=== PATIENT | male | born 1945 | race Caucasian/White ===

== ENCOUNTER → 2024-06-30 | Outpatient (CLI) | payer MEDICARE, OTHER, SELFPAY ==
[2024-06-30 08:31] LABS: Basophils # (Auto) 0.1 Thou/mm3 (0.0-0.2); Basophils % (Auto) 1 % (0-2.5); Eosinophils # (Auto) 0.4 Thou/mm3 (0.0-0.5); Eosinophils % (Auto) 6 % (0-10); Hematocrit 44.5 % (41.0-53.0); Hemoglobin 15.6 g/dL (13.5-16.0); Immature Granulocytes % (Auto) 0 % (0-0); Immature Granulocytes Auto 0.02 Thou/mm3 (0.00-0.00); Lymphocytes # (Auto) 1.9 Thou/mm3 (1.0-4.8); Lymphocytes % (Auto) 27 % (10-50); Mean Corpuscular HGB Conc 35.1 g/dl (31.0-37.0); Mean Corpuscular Hemoglobin 29.5 pg (25.0-35.0); Mean Corpuscular Volume 84 fL (80-100); Monocytes # (Auto) 0.6 Thou/mm3 (0.0-0.8); Monocytes % (Auto) 9 % (0-12); Neutrophils % (Auto) 57 % (37-80); Nucleated Red Blood Cell % 0 /100 WBC (0); Platelet Count 319 Thou/mm3 (140-440); RDW Standard Deviation 39.4 fL (35.1-43.9); Red Blood Count 5.28 Miln/mm3 (4.50-5.90)
[2024-06-30 09:00] LABS: Alanine Aminotransferase 22 U/L (10-49); Albumin, Serum 4.4 gm/dL (3.4-4.8); Alkaline Phosphatase 107 U/L (46-116); Anion Gap 9 (7-16); Aspartate Amino Transferase 18 U/L (0-34); BUN/Creatinine Ratio 14 Ratio (12-20); Bilirubin,Direct 0.3 mg/dL (0.0-0.3); Bilirubin,Total 0.8 mg/dL (0.3-1.2); Blood Urea Nitrogen 14 mg/dL (9-23); Calcium 9.6 mg/dL (8.3-10.6); Carbon Dioxide 25.8 mMol/L (20.0-31.0); Cardiac Risk Estimate 3.3 RATIO (4.0-6.7); Chloride 103 mMol/L (98-107); Cholesterol 150 mg/dL (132-200); Free T4 (Free Thyroxine) 1.33 ng/dL (0.89-1.76); Glucose 99 mg/dL (74-106); HDL Cholesterol 46 mg/dL (40-60); LDL Cholesterol,Calculated 88 mg/dL (0-130); Osmolality,Calculated 276 (275-295); Potassium 4.2 mMol/L (3.4-5.1); Sodium 138 mMol/L (136-145); Thyroid Stimulating Hormone 4.21 uIU/mL (0.55-4.78); Total Protein 6.8 gm/dL (5.7-8.2); Triglycerides 80 mg/dL (30-150); eGFR > 60 See Note
== END | disposition home or self-care (01) ==
PROVIDERS: PCP Internal Medicine; Referring Provider Internal Medicine; Visit Provider Internal Medicine Cardiovascular Disease
DX: I10 Essential (primary) hypertension (principal); E78.5 Hyperlipidemia, unspecified; I25.118 Atherosclerotic heart disease of native coronary artery with other forms of angina pectoris; I49.9 Cardiac arrhythmia, unspecified
CPT/HCPCS: 36415; 80048; 80061; 80076; 84439; 84443; 85025

== ENCOUNTER → 2024-11-12 | Outpatient (CLI) | payer MEDICARE, OTHER, SELFPAY ==
[2024-11-12 11:32] LABS: Basophils # (Auto) 0.1 Thou/mm3 (0.0-0.2); Basophils % (Auto) 1 % (0-2.5); Eosinophils # (Auto) 0.4 Thou/mm3 (0.0-0.5); Eosinophils % (Auto) 7 % (0-10); Hematocrit 36.5 % (41.0-53.0); Immature Granulocytes % (Auto) 0 % (0-0); Immature Granulocytes Auto 0.02 Thou/mm3 (0.00-0.00); Lymphocytes # (Auto) 1.5 Thou/mm3 (1.0-4.8); Lymphocytes % (Auto) 26 % (10-50); Mean Corpuscular HGB Conc 35.6 g/dl (31.0-37.0); Mean Corpuscular Hemoglobin 29.8 pg (25.0-35.0); Mean Corpuscular Volume 84 fL (80-100); Monocytes # (Auto) 0.4 Thou/mm3 (0.0-0.8); Monocytes % (Auto) 8 % (0-12); Neutrophils # (Auto) 3.4 Thou/mm3 (1.8-7.7); Neutrophils % (Auto) 58 % (37-80); Nucleated Red Blood Cell % 0 /100 WBC (0); Platelet Count 285 Thou/mm3 (140-440); RDW Standard Deviation 39.3 fL (35.1-43.9); Red Blood Count 4.36 Miln/mm3 (4.50-5.90); White Blood Count 5.8 Thou/mm3 (3.8-10.6)
[2024-11-12 11:47] LABS: Glucose Estimated Average 100 mg/dL (80-131); Hemoglobin A1C 5.1 % Hgb (4.8-6.0)
[2024-11-12 11:59] LABS: Alanine Aminotransferase 17 U/L (10-49); Albumin, Serum 3.9 gm/dL (3.4-4.8); Albumin/Globulin Ratio 1.9 (1.2-2.2); Alkaline Phosphatase 95 U/L (46-116); Anion Gap 10 (7-16); Aspartate Amino Transferase 19 U/L (0-34); BUN/Creatinine Ratio 12 Ratio (12-20); Bilirubin,Total 0.5 mg/dL (0.3-1.2); Blood Urea Nitrogen 12 mg/dL (9-23); Calcium 8.7 mg/dL (8.3-10.6); Calcium (Corrected) 8.8 mg/dL (8.5-10.1); Carbon Dioxide 25.2 mMol/L (20.0-31.0); Chloride 107 mMol/L (98-107); Cholesterol 124 mg/dL (132-200); Globulin 2.1 gm/dL (2.3-3.5); Glucose 95 mg/dL (74-106); HDL Cholesterol 41 mg/dL (40-60); LDL Cholesterol,Calculated 71 mg/dL (0-130); Osmolality,Calculated 282 (275-295); Sodium 142 mMol/L (136-145); Thyroid Stimulating Hormone 2.61 uIU/mL (0.55-4.78); Triglycerides 61 mg/dL (30-150); eGFR > 60 See Note
== END | disposition home or self-care (01) ==
LOC: COPL 09:56
PROVIDERS: PCP Internal Medicine; Referring Provider Internal Medicine; Visit Provider Internal Medicine
DX: I11.0 Hypertensive heart disease with heart failure (principal); E11.9 Type 2 diabetes mellitus without complications; E55.9 Vitamin D deficiency, unspecified; E03.9 Hypothyroidism, unspecified
CPT/HCPCS: 36415; 80053; 80061; 82306; 83036; 84439; 84443; 85025

== ENCOUNTER 2025-03-07 11:42 | Inpatient (IN) | payer MEDICARE, OTHER, SELFPAY ==
[2025-03-07] VITALS (25 sets, daily range): BP systolic 101–151; BP diastolic 56–103; PULSE 107–168; RESP 12–29; TEMP 37–38.3; O2SAT 89–97; BMI 29.3
--- NOTE | 2025-03-07 11:47 | EKG_ITS ---
[facility] Test Date: 2025-03-07 Pat Name: NATALIE STILES Department: Room: - Gender: Male Senior Architect/Design Manager: : 1945 Requested By: Kiana Delaney Order Number: [id number] Reading MD: Kiana Delaney Measurements Intervals [place] Rate: 142 P: CO: QRS: 78 QRSD: 136 T: 9 QT: 316 QTc: 487 Interpretive Statements ATRIAL FIBRILLATION WITH RAPID VENTRICULAR RESPONSE RIGHT BUNDLE BRANCH BLOCK [120+ ms QRS DURATION, UPRIGHT V1, 40+ ms S IN I/aVL/V4/V5/V6] ST DEPRESSION, CONSIDER SUBENDOCARDIAL INJURY [0.1+ mV ST DEPRESSION] Compared to ECG 01/01/2022 09:04:26 Right bundle-branch block now present ST (T wave) deviation now present Sinus rhythm no longer present Indeterminate axis no longer present Incomplete right bundle-branch block no longer present Myocardial infarct finding no longer present /store/S0/[id number]/ecg/[id number].pdf
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
[2025-03-07] MEDS: DILTIAZEM INJ 5 MG/ML VIAL 5 ML 15 MG IV ×2 (12:15→12:51)
[2025-03-07] MEDS: SODIUM CHLORIDE 0.9% 1000 ML 1,000 ML 999 ML IV ×2 (12:17→14:33)
[2025-03-07 12:19] LABS: Lactate (Lactic Acid) 2.7 mMol/L (0.4-2.0)
[2025-03-07 12:26] LABS: Basophils # (Auto) 0.0 Thou/mm3 (0.0-0.2); Basophils % (Auto) 0 % (0-2.5); Eosinophils # (Auto) 0.0 Thou/mm3 (0.0-0.5); Eosinophils % (Auto) 0 % (0-10); Hematocrit 33.1 % (41.0-53.0); Hemoglobin 11.3 g/dL (13.5-16.0); Immature Granulocytes Auto 0.07 Thou/mm3 (0.00-0.00); Lymphocytes # (Auto) 0.3 Thou/mm3 (1.0-4.8); Lymphocytes % (Auto) 3 % (10-50); Mean Corpuscular HGB Conc 34.1 g/dl (31.0-37.0); Mean Corpuscular Hemoglobin 26.8 pg (25.0-35.0); Mean Corpuscular Volume 78 fL (80-100); Monocytes # (Auto) 0.4 Thou/mm3 (0.0-0.8); Monocytes % (Auto) 4 % (0-12); Neutrophils # (Auto) 9.0 Thou/mm3 (1.8-7.7); Neutrophils % (Auto) 93 % (37-80); Nucleated Red Blood Cell # 0.00 Thou/mm3 (0.00-0.00); Nucleated Red Blood Cell % 0 /100 WBC (0); Platelet Count 257 Thou/mm3 (140-440); RDW Standard Deviation 39.1 fL (35.1-43.9); Red Blood Count 4.22 Miln/mm3 (4.50-5.90); White Blood Count 9.7 Thou/mm3 (3.8-10.6)
[2025-03-07 13:00] LABS: Alanine Aminotransferase 38 U/L (10-49); Albumin, Serum 3.7 gm/dL (3.4-4.8); Albumin/Globulin Ratio 1.5 (1.2-2.2); Alkaline Phosphatase 69 U/L (46-116); Anion Gap 13 (7-16); Aspartate Amino Transferase 78 U/L (0-34); BUN/Creatinine Ratio 19 Ratio (12-20); Bilirubin,Total 0.7 mg/dL (0.3-1.2); Blood Urea Nitrogen 26 mg/dL (9-23); Calcium 8.3 mg/dL (8.3-10.6); Calcium (Corrected) 8.5 mg/dL (8.5-10.1); Carbon Dioxide 17.7 mMol/L (20.0-31.0); Chloride 91 mMol/L (98-107); Creatinine (Component) 1.4 mg/dL (0.6-1.3); Estimated Creatinine Clearance 43.1 mL/min (>60); Globulin 2.4 gm/dL (2.3-3.5); Glucose 135 mg/dL (74-106); Lipase 48 U/L (12-53); Magnesium 2.0 mg/dL (1.6-2.6); Osmolality,Calculated 252 (275-295); Potassium 3.2 mMol/L (3.4-5.1); Procalcitonin 7.21 ng/ml (0.0-0.49); Sodium 122 mMol/L (136-145); Total Protein 6.1 gm/dL (5.7-8.2); eGFR 52 See Note
[2025-03-07 13:01] LABS: INR 1.0 (0.9-1.3); Partial Thromboplastin Time 32.0 Seconds (22.0-36.0); Prothrombin Time 10.8 Seconds (9.0-12.2)
[2025-03-07 13:02] LABS: Troponin I 2.399 ng/mL (0.0-0.045)
[2025-03-07] MEDS: DILTIAZEM in D5W 125 MG 125 MG/125 ML BAG IV (13:10)
[2025-03-07 13:29] LABS: B-Type Natriuretic Peptide 217 pg/mL (0-100)
[2025-03-07] MEDS: ASPIRIN 81 MG CHEW 162 MG PO (13:33)
[2025-03-07] MEDS: POTASSIUM CHL 10 mEq IVPB 10 MEQ/100 ML BAG 100 MEQ IV ×4 (14:33→18:06)
[2025-03-07] MEDS: cefTRIAXone/D5w 1gm IV premix 1 GM/50 ML BAG IV (14:37)
[2025-03-07 14:39] LABS: Influenza A Ag Negative; Influenza B Ag Negative
[2025-03-07 15:13] LABS: Reflex Lactate? Y
[2025-03-07] MEDS: AZITHROMYCIN INJ 500 MG in SODIUM CHLORIDE 0.9% 250 ML 250 ML 250 MG IV (15:28)
--- NOTE | 2025-03-07 15:30 | ESHP_ITS ---
<Statement entered by Tanvir Santana MD - 03/07/25 18:27> 79M with PMH of AFIB (not on anticoagulation), CAD s/p PCI (on plavix) in 2022, HTN, and HLD was admitted due to sepsis 2/2 CAP with end organ damage and NSTEMI type I vs II. Patient had been having SOB, cough, and dizziness since last week. Met SIRS criteria and had Lactic acidosis with PHYLLIS. Patient's trops were 2.399 and EKG did showed some ST depressions with A-fib RVR. Software Development Analyst Dr. Brody was consulted as he is his outpatient sponge clipper. Stated to start heparin drip ACS protocol and for anticoagulation as well as amiodarone drip and continue diltiazem drip. On initial assessment patient did not seem fluid overloaded and BNP was 217, but later in the evening patient became more SOB and his HR was still in the 160-180 and developed crackles. Software Development Analyst was again contacted and stated to start Digoxin 0.5mg IVP for loading dose and Digoxin 0.25mg IVP 6 hr after (23:15). Patient also got repeat CXR that showed PNA again and some vascular congestion seen. Repeated BNP and gave Bumex 1mg x1. #Sepsis 2/2 CAP--> Azithromycin and Rocephin, got 2.5L IVF. Trend LA. #CHF exacerbation--> Bumex 1mg x1, echo ordered, Strict INOs, repeat BNP #NSTEMI type I vs II---> On heparin drip, cardiology on board, trend trops #A-fib with RVR ---> on Diltiazem drip, Amio drip, and on Digoxin 0.5mg IV loading dose and 0.25mg IVP 6hr after. Monitor BP #Hyponatremia---> goal 128-130 repeat Na at 19:00 General: A/O x3, no acute distress, moderate respiratory distress Eyes: PERRL, EOMI. Anicteric, vision grossly intact. Ears: No ear pain, no ear discharge, Hearing grossly intact. Nose: No nasal discharge. Mouth/Throat: Moist mucous membranes, no redness, no lesions. Neck: Neck supple, non-tender, no cervical lymphadenopathy. Lungs: Crackles JILLIAN, No accessory muscle use. Cardio: Normal S1/S2, regular rhythm, no murmurs, no JVD or carotid bruits. Abdomen: Soft, non-tender, no palpable masses, peristalsis present, no guarding or rebound. Extremities: Symmetrical, no significant deformities, no peripheral edema , non-tender, peripheral pulses presents. Skin: No rashes, no lesions, warm to touch. Neuro: No focal neurological deficits. motor and sensory intact Psych: Cooperative, appropriate mood and effect. I have reviewed the note and agree with the medical student's assessment & plan with exceptions as below. I have personally reviewed labs, imaging, home meds/prior records, examined the patient, formulated and discussed management plan with my attending Case disclosed with attending Dr. Ronald Santana PGY2 Disclaimer: Even though this this note was dictated by speech recognition and even though it was carefully revised there may still be minor errors in knotting machine operator due to voice recognition software. Documentation for date of: 03/07/25 HPI History of Present Illness History of present illness: Mr. Reji Skelton is a 79yo M w/ PMH AFIB (on Plavix), CAD s/p PCI in 2022, HTN, HLD who came to ED from PCP w/ complaint of x4 days weakness, dizziness, cough, SOB beginning before admission. Pt also reported 'foggy vision' in ED which resolved, L temporal headache, sweats, fevers. He also reports exercise intolerance during this 4 day period. He denies chest pain, abdominal pain, n/v/d, constipation, urinary symptoms, palpitations, weight gain/loss, swelling. Pt requests FULL CODE, declares MDM as his Delma Skelton ([phone]). PMH: As above. PSH: R Hip arthroplasty 2022, PCI, Cholecystectomy SH: 2packs a day 14 years quit 1982, drinks glass of wine every other night, lives in his house with Meds: Amlodipine 10mg qD, Losartan 50mg qD, Metoprolol Tartrate 50mg BID, Clopidogrel 75mg qD, Atorvastatin 80mg qD, Nitroglycerin 0.4mg PRN, ASA 81mg qD Allergies: NKDA In ED, pt was afebrile, hypertensive to 130s SBP, tachycardic up to 170s HR, tachypneic in 20s RR. Labs showed hyponatremia 122, hypokalemia 3.2, anemia 11.3, troponin elevation 2.399, BNP 217, Procal 7.21. EKG showed AFIB w/ ST depressions, CXR suggested bibasilar PNA, CT was negative for acute hemorrhage. Pt's sponge clipper Dr. Brody was notified and consulted. Pt was placed on Diltiazem drip in ED, received ASA and 2L normal saline. Admitted for management of Sepsis 2/2 PNA and possible NSTEMI in setting of AFIB. Review of Systems Review of Systems Narrative Review of Systems: Negative except as noted above. Exam Vital Signs Temp Pulse Resp BP Pulse Ox O2 Del Method O2 Flow Rate 99.3 F 128 H 29 H 138/90 H 93 L Nasal Cannula 3 03/07/25 14:12 03/07/25 15:03 03/07/25 15:03 03/07/25 15:03 03/07/25 15:03 03/07/25 14:12 03/07/25 14:12 Narrative Exam General: AOx3, no acute distress, able to speak full sentences HEENT: NC/AT, mucous membranes moist, bilateral sclera anicteric Cardiovascular: tachycardic, regular rhythm, S1/S2 present, no murmurs appreciated. Negative for JVD or edema Pulmonary: clear to auscultation bilaterally, no rales/rhonchi/wheezes Abdominal: soft, non-tender, non-distended, no rebound/guarding, normal bowel sounds present Musculoskeletal: normal ROM Skin: warm and dry, intact, no rashes Neuro: CN II-XII intact, no focal deficits Results: Labs 03/07/25 12:00 03/07/25 12:00 Labs: Short CBC 03/07/25 Range/Units 12:00 WBC 9.7 (3.8-10.6) Thou/mm3 Hgb 11.3 L (13.5-16.0) g/dL Hct 33.1 L (41.0-53.0) % Plt Count 257 (140-440) Thou/mm3 BMP 03/07/25 12:00 Sodium 122 L Potassium 3.2 L Chloride 91 L Carbon Dioxide 17.7 L BUN 26 H Creatinine 1.4 H Glucose 135 H Calcium 8.3 Cardiac Enzymes 03/07/25 Range/Units 12:00 Troponin I 2.399 H* (0.0-0.045) ng/mL Liver Function 03/07/25 Range/Units 12:00 Total Bilirubin 0.7 (0.3-1.2) mg/dL AST 78 H (0-34) U/L ALT 38 (10-49) U/L Alkaline Phosphatase 69 (46-116) U/L Albumin 3.7 (3.4-4.8) gm/dL Quality Measures Quality Measures none Advance care planning discussed with:: patient Medications Home Medications and Allergies Home Medications ?Medication ?Instructions ?Recorded ?Confirmed ?Type amlodipine 10 mg tablet 10 mg PO QDAY 01/01/2209/11 History atorvastatin 40 mg tablet 80 mg PO QDAY 01/01/2209/10 History metoprolol tartrate 50 mg tablet 50 mg PO BID 01/01/22 09/11/22 History quinapril 40 mg tablet 40 mg PO QDAY 01/01/2209/11 History clopidogrel 75 mg tablet (Plavix) 75 mg PO QDAY 09/10/22 History nitroglycerin 0.4 mg sublingual 1 mg buccal [id number] PRN Pain 09/10/22 09/10/22 History tablet Allergies Allergy/AdvReac Type Severity Reaction Status Date / Time No Known Allergies Allergy Verified 09/11/22 11:11 Visit Medications Diltiazem HCl (Diltiazem In D5w 125 Mg) 125 mg in 125 mls @ 5 mls/hr IV .Q24H SARAH Stop: 04/06/25 12:37 Last Infusion: 03/07/25 14:55 Dose: 15 mg/hr, 15 mls/hr Potassium Chloride (Kcl Ivpb) 10 meq in 100 mls @ 100 mls/hr IV Q1H SARAH Stop: 03/07/25 17:43 Last Admin: 03/07/25 15:29 Dose: 100 mls/hr Discontinued Medications Aspirin (Aspirin 325 Mg Tablet) 325 mg PO X1 ONE Stop: 03/07/25 13:22 Last Admin: 03/07/25 15:09 Dose: Not Given Aspirin (Aspirin 81 Mg Chew) 162 mg PO X1 ONE Stop: 03/07/25 13:31 Last Admin: 03/07/25 13:33 Dose: 162 mg Diltiazem HCl (Diltiazem Inj 5 Mg/Ml Vial 5 Ml) 15 mg IV X1 ONE Stop: 03/07/25 12:01 Last Admin: 03/07/25 12:15 Dose: 15 mg Diltiazem HCl (Diltiazem Inj 5 Mg/Ml Vial 5 Ml) 15 mg IV X1 ONE Stop: 03/07/25 12:38 Last Admin: 03/07/25 12:51 Dose: 15 mg Sodium Chloride (Ns) 1,000 mls @ 999 mls/hr IV .Q1H1M ONE Stop: 03/07/25 13:14 Last Infusion: 03/07/25 13:18 Dose: Infused Sodium Chloride (Ns) 1,000 mls @ 999 mls/hr IV .Q1H1M ONE Stop: 03/07/25 14:45 Last Admin: 03/07/25 14:33 Dose: 999 mls/hr Azithromycin 500 mg/ Sodium (Chloride) 250 mls @ 250 mls/hr IV X1 ONE Stop: 03/07/25 14:44 Last Admin: 03/07/25 15:28 Dose: 250 mls/hr Ceftriaxone Sodium/Dextrose (Rocephin/D5w 1gm Iv Premix) 1 gm in 50 mls @ 100 mls/hr IV X1 ONE Stop: 03/07/25 14:14 Last Infusion: 03/07/25 15:09 Dose: Infused Sodium Chloride (Ns) 1,000 mls @ 999 mls/hr IV .Q1H1M ONE Stop: 03/07/25 15:21 Last Admin: 03/07/25 15:28 Dose: Not Given Assessment & Plan Plan 79yo M w/ PMH AFIB (on Plavix), CAD s/p PCI in 2022, HTN, HLD who came to ED from PCP w/ complaint of x4 days weakness, dizziness, cough, SOB beginning before admission. CXR showed bibasilar pneumo, EKG showed AFIB w/ ST depressions. Admitted for management of sepsis and AFIB w/ NSTEMI. #Sepsis 2/2 CAP #PHYLLIS Pt reported productive cough, headache, subjective fever. Additionally reported poor oral intake during this time. Lungs CTA b/l on admission however ED CXR suggested bibasilar pneumonia. Pt met SIRS criteria on admit with tachycardia, tachypnea, and further sepsis criteria w/ evidence of end-organ damage with elevated troponin as below and creatinine 1.4/BUN 24. WBCs were normal in ED but Procalcitonin was elevated to 7.21. - s/p 30ccs/kg fluid (2400ccs) - Blood cx, urine cx, UA pending - Started PO Zithromax 500mg qD, IV Rocephin. - Started PO Zofran for symptomatic relief. - Trend CBC in AM #AFIB w/ RVR #NSTEMI Type I vs II Pt reported SOB and exercise intolerance during the 4 days prior to admit but no chest pain, palpitations, swelling. EKG in ED showed AFIB with ST depressions concerning for mixed picture of AFIB and NSTEMI. Pt also reported poor oral intake during the last week but endorsed good fluid intake. Pt has had AFIB in the past but denies any similar episodes as this one. He is s/p PCI in 2022. Troponin in ED elevated to 2.399, BNP in ED elevated to 217. Pt's AFIB is rate controlled at home w/ Metoprolol tartrate 50mg BID, however in ED pt was tachycardic to the 170s bpm. Notably patient has no history of CHF and appears euvolemic on physical exam this admission. At this stage etiology is unclear as pt reports AFIB is controlled at home, most likely current episode is stress induced in setting of sepsis w/ concomitant demand ischemia. Pt had previously been hospitalized 10/2024 during which time TSH, Lipid Panel, HA1c were all WNL. HEART Score 8 (50-65% risk of MACE) - Admit telemetry - Hold home medications - Pt's sponge clipper Dr. Brody was notified and consulted, appreciated. - Per recs will begin IV Heparin, IV Amiodarone, continue IV Diltiazem from ED. Will also start ASA 81. - PO Protonix 40mg GI prophylaxis - Trend troponin q6 #Microcytic Anemia Hgb on admit 11.3, MCV 78. - Monitor CBC in AM #Hyponatremia #Hypokalemia Sodium 122 on admit, Potassium 3.2. Hyponatremia most likely 2/2 pneumonia- caused SIADH. - Monitor for now - Replete as necessary. Hospital management: Disposition: Admit tele, observe overnight response to cardioregulatory and anti-infection medications + fluid administrations. Fluids: s/p 2x saline boluses Diet: Cardiac Lines: peripheral IVs DVT prophylaxis: Heparin GI prophylaxis: PO Protonix CODE STATUS: full code ----- Plan discussed with attending physician Dr. Ronald Johnson, Medical Student [facility] Attending Provider Attestation/Addendum I have examined the patient, reviewed labs and imaging findings, discussed the case with the resident(s), and reviewed entered orders. I agree with the plan of care as outlined in this note, with these additional summaries/recommendations: After examination of the patient and review of the clinical data, I feel that this patient needs admission to the hospital for further treatment and evaluation. Patient is a 79-year-old male with a medical history of primary hypertension, CAD s/p PCI, hyperlipidemia, and atrial fibrillation who presents to [facility] emergency department on 03/07/2025 with chief complaint of nonspecific symptoms with global weakness, dizziness, shortness of breath, cold sweats/fevers, and foggy vision. Patient seen at bedside. Patient diagnosed with sepsis. SIRS criteria met. Endorgan damage with PHYLLIS and elevated troponin. Most likely source is pulmonary. Chest x-ray shows bibasilar pneumonia which is greater at left base. Blood cultures taken, follow-up results when available. UA pending. Start IV antibiotics. Patient received 2 L fluid bolus in the ED. we will give additional bolus of patient received 30 cc/kg. lactic acidosis present most likely type A secondary to sepsis. Continue fluids and follow-up reflex lactic acid level. Patient diagnosed with atrial fibrillation with rapid ventricular response. He has chronic atrial fibrillation at baseline. Received multiple pushes of IV diltiazem in the ED and was started on diltiazem gtt. rate did not improve and case discussed with cardiology. Patient will be started on amiodarone gtt. as well. If patient becomes hypotensive we will discontinue diltiazem drip and continue amiodarone. [id number] score elevated and we will start heparin gtt. Target APTT of 60 to 80 seconds. Trigger for RVR most likely sepsis. Patient diagnosed with NSTEMI. Most likely type II versus less likely type I. Troponin elevated to 2.399. Continue to trend troponin every 6 hours or until downtrend. Resume home statin. Order lipid panel. Start heparin GTT. Continue home aspirin and hold Plavix for now. Patient diagnosed with hypoosmolar hyponatremia. Volume status appears euvolemic/hypovolemic. Will give fluids and repeat sodium this afternoon. Hypokalemia present and replacement given. Patient updated on the plan and in agreement. All questions answered to satisfaction. Please see residents note for additional details and management. Dr. Ronald MD
[2025-03-07 15:37] LABS: Lactic Acid, 3 HR 2.1 mMol/L (0.4-2.0)
[2025-03-07] MEDS: PANTOPRAZOLE 40 MG TABLET PO (15:55)
[2025-03-07] MEDS: AMIODARONE 150 MG IVPB 150 MG/100 ML BAG 600 MG IV (16:02)
[2025-03-07] MEDS: AMIODARONE 360 MG IVPB 360 MG/200 ML BAG 33.333 MG IV (16:17)
[2025-03-07] MEDS: SODIUM CHLORIDE 0.9% 500 ML 500 ML 999 ML IV (16:26)
[2025-03-07] MEDS: ACETAMINOPHEN 325 MG TABLET 650 MG PO (16:33)
[2025-03-07] MEDS: HEPARIN SOD INJ 5000 UNIT/ML VIAL 4000 UNIT IV (16:46)
[2025-03-07] MEDS: Heparin/D5w 25K 250 ML Ivpb 25,000 UNIT/250 ML BAG 9.6 UNIT IV (16:46)
--- NOTE | 2025-03-07 16:53 | PC.NURSE ---
PT IN SVT BUT SELF CONVERTED, I CALLED DR. SHABAZZ TO LET HIM KNOW, IN WHICH HE REPORTS THAT HE WILL COME DOWN AND SEE THE PT, ANOTHER EKG ORDER AT THIS TIME
--- NOTE | 2025-03-07 17:00 | XR_ITS ---
Examination: AP chest single view TECHNIQUE: AP portable sitting chest single view Date and time: March 07, 2025, 1706 hours, comparison March 07, 2025 12:52 PM. INDICATIONS: Shortness of breath today FINDINGS: Significant pneumonia left mid and lower lung zone Normal heart size Prominent osteopenia IMPRESSION: Significant left lung pneumonia
[2025-03-07 17:01] LABS: Partial Thromboplastin Time 31.2 Seconds (22.0-36.0)
[2025-03-07 17:03] LABS: Albumin, Serum 3.4 gm/dL (3.4-4.8); Anion Gap 12 (7-16); BUN/Creatinine Ratio 18 Ratio (12-20); Blood Urea Nitrogen 21 mg/dL (9-23); Calcium 7.5 mg/dL (8.3-10.6); Calcium (Corrected) 8.0 mg/dL (8.5-10.1); Carbon Dioxide 16.9 mMol/L (20.0-31.0); Chloride 97 mMol/L (98-107); Creatinine (Component) 1.2 mg/dL (0.6-1.3); Estimated Creatinine Clearance 50.2 mL/min (>60); Glucose 116 mg/dL (74-106); Osmolality,Calculated 257 (275-295); Phosphorous 3.0 mg/dL (2.4-5.1); Potassium 3.3 mMol/L (3.4-5.1); Sodium 126 mMol/L (136-145); Troponin I 1.953 ng/mL (0.0-0.045); eGFR > 60 See Note
--- NOTE | 2025-03-07 17:10 | ECHO_ITS ---
Transthoracic Echo Report Ht (in): 65 Wt (lb): 176 Exam Location: [facility] Status: Inpatient Production Hand: Destiny Barkley Indications: Procedure Performed: BP: 122 / 77 HR: MEASUREMENTS (Male / Female) Normal Values 2D ECHO LV Diastolic Diameter PLAX 3.8 cm 4.2 - 5.9 / 3.9 - 5.3 cm LV Systolic Diameter PLAX 2.4 cm IVS Diastolic Thickness 1.1 cm 0.6 - 1.0 / 0.6 - 0.9 cm LVPW Diastolic Thickness 1.2 cm 0.6 - 1.0 / 0.6 - 0.9 cm LV Relative Wall Thickness 0.6 LVOT Diameter 1.9 cm LA Volume Index 32.5 cm?/m? 16 - 28 cm?/m? M-MODE AV Cusp Separation MM 1.3 cm DOPPLER AV Peak Velocity 197.0 cm/s AV Peak Gradient 15.5 mmHg AV Mean Gradient 8.0 mmHg AV Velocity Time Integral 28.2 cm LVOT Peak Velocity 136.0 cm/s LVOT Peak Gradient 7.4 mmHg LVOT Velocity Time Integral 20.7 cm AV Area Cont Eq vti 2.1 cm? AV Area Cont Eq pk 2.0 cm? MV Area PHT 3.9 cm? Mitral E Point Velocity 87.3 cm/s Mitral A Point Velocity 66.9 cm/s Mitral E to A Ratio 1.3 LV E' Lateral Velocity 10.2 cm/s Mitral E to LV E' Lateral Ratio 8.6 TR Peak Velocity 190.0 cm/s TR Peak Gradient 14.4 mmHg PV Peak Velocity 119.0 cm/s PV Peak Gradient 5.7 mmHg FINDINGS Left Ventricle Hyperdynamic LV.Normal left ventricular size, wall thickness, systolic function with no obvious regional wall motion abnormalities. Normal left ventricular diastolic filling pattern for age. The ejection fraction is visually estimated at 65-70 %. Right Ventricle The right ventricle is normal in size and systolic function. Left Atrium The left atrium is normal by two-dimensional, color flow and Doppler imaging with no structural abnormalities, no thrombus formation present. Right Atrium The right atrium is normal by two-dimensional imaging, color flow and Doppler imaging with no structural abnormalities, no thrombus formation present. Atrial Septum The interatrial septum appears normal with no evidence of a shunt. Aorta The aorta is normal by two-dimensional, color flow and Doppler interrogation. Mitral Valve Mild thickening of the mitral valve leaflets. . [id number] mitral regurgitation. Aortic Valve Aortic valve sclerosis without stenosis. Trace aortic regurgitation. Tricuspid Valve The tricuspid valve is normal by two-dimensional, color flow and Doppler interrogation. There is mild tricuspid valve regurgitation. Pulmonic Valve The pulmonic valve is not well visualized. There is no significant pulmonic valve regurgitation. Vessels The pulmonary artery appears normal. The inferior vena cava pulmonary and hepatic veins appear normal. Pericardium There is a trace pericardial effusion wtihout cardiac tamponade. CONCLUSIONS Indication: CHF Hyperdynamic LV.Normal left ventricular size and normal diastolic function. Estimated EF 65-70% Normal right ventricular size and function. Mild to moderate mitral regurgitation. Mild tricuspid regurgitation. Aortic valve sclerosis without stenosis & Trace aortic regurgitation. There is a trace pericardial effusion wtihout cardiac tamponade. David Brody (Electronically Signed) Final Date: 08 March 2025 16:52
[2025-03-07] MEDS: DIGOXIN INJ 0.25 MG/ML AMP 2 ML 0.5 MG IVP (17:45)
[2025-03-07] MEDS: BUMETANIDE INJ 0.25 MG/ML VIAL 4 ML 1 MG IVP (18:00)
[2025-03-07 18:42] LABS: B-Type Natriuretic Peptide 181 pg/mL (0-100)
[2025-03-07 19:08] LABS: Sodium 125 mMol/L (136-145)
--- NOTE | 2025-03-07 20:31 | ESCONSULT_ITS ---
RE: REJI STILES : 1945 DATE OF CONSULTATION: 03/07/2025 Consultation is asked by the hospitalist. PERTINENT HISTORY OF PRESENT ILLNESS: Mr. Reji Stiles is a 79-year-old gentleman who is known to have history of multiple problems of arterial sclerotic heart disease with previous history of coronary angioplasty and intracoronary stent placement with multiple stents in right coronary artery, history of chronic hypertension, history of hyperlipidemia, history of osteoarthritis requiring right hip arthroplasty. The patient was in his usual state of health up until 3 days before admission when the patient started feeling symptoms of congestion of the upper airways. The next day, the patient lost his appetite and also felt short of breath. The patient had intermittent symptoms of chills as well as sweaty feeling. The patient's symptoms of shortness of breath got worse and the patient was seen in the clinic outside and had electrocardiogram done, which showed atrial flutter fibrillation with fast ventricular response and the patient was referred over to the emergency room and was subsequently hospitalized. The patient's workup done in the emergency room showed evidence of left-sided pneumonia as well as atrial flutter fibrillation with fast ventricular response. The patient has also been having symptoms of weakness and dizziness, although denied any complaint of chest pain, denied any complaint of skipped beats or palpitations. PAST MEDICAL HISTORY: Past medical history of the patient is significant for history of chronic hypertension for the last several years, history of hyperlipidemia for the last several years, history of right hip arthroplasty in 10/2022, history of complex coronary angioplasty and intracoronary stent placement of the right coronary artery in 12/2021. There is no history of diabetes mellitus. No history of any other major operations in the past. PERSONAL HISTORY: The patient is a nonsmoker, nonalcoholic. FAMILY HISTORY: The family history is noncontributory. PHYSICAL EXAMINATION: VITAL SIGNS: The pertinent physical findings show the patient's blood pressure is 121/68, pulse rate is 168 per minute and irregularly irregular. The patient's respiratory rate is 21 per minute. The temperature is 99.2. HEAD AND NECK: Head and neck examination is unremarkable. JVP is not elevated. Carotid pulsations are felt well on both sides. No carotid bruits heard. HEART: PMI neither palpable nor visible. S1 and S2 are normal. No murmur or gallop is appreciated. No clicks are heard. LUNGS: The lungs shows few basal rhonchi. No active wheezing is heard. ABDOMEN: Abdomen is soft. No organomegaly. EXTREMITIES: No pedal edema is noted. Peripheral pulses in the feet are palpable. NEUROLOGIC: Neurological examination is unremarkable. No focal localized neuro deficit is appreciated. DIAGNOSTIC DATA: The patient's electrocardiogram showed atrial flutter fibrillation with fast ventricular response. The lab work showed WBC count of 5800, hemoglobin 13 with hematocrit of 36.5, repeat WBC count was 9700, hemoglobin 11.3 with hematocrit of 33.1 and the neutrophil count was up to 93% and lymphocytes were 3%. The patient's lactic acid level was mildly elevated and was 2.1. The BUN on admission was 21, creatinine 1.2, potassium level of 3.3, sodium 126. The patient's troponin level was reported to be 2.399 and repeat troponin level was down to 1.953, BNP level initial one was 217, repeat BNP level was 181. The patient's chest x-ray was reported to show significant left mid and lower lung pneumonia. CLINICAL IMPRESSION: 1. Left lung pneumonia. 2. Acute onset atrial flutter fibrillation with fast ventricular response. 3. Arterial sclerotic heart disease with previous history of right coronary interventions. 4. Chronic hypertension. 5. Hyperlipidemia. 6. Osteoarthritis. SUGGESTIONS: I agree with present plan of management with the patient of continuing the patient on antiarrhythmic therapy with IV amiodarone as well as the patient has also been started on IV digoxin. Potassium supplements should be continued. The patient has also been started on IV antibiotic therapy, which will be continued. Cardiac echo Doppler study has been ordered and will be reviewed once done. Antiplatelet therapy of aspirin as well as intravenous heparin therapy will be continued. I will follow the patient with you and highly thank you very much for letting me participate in the evaluation of the patient. DT: 19:46:27 TT: 20:30:00 Ref: [id number] - TID: [id number]
[2025-03-07] MEDS: DILTIAZEM in D5W 125 MG 125 MG/125 ML BAG 15 MG IV (21:10)
--- NOTE | 2025-03-07 21:19 | PC.NURSE ---
spoke with pharmacy Manoj that the [facility] is trying to scan for 03/08/25 at 1220 she stated that it is ok to scan new bag now
--- NOTE | 2025-03-07 21:29 | PC.NURSE ---
notified by ICU failure analysis technician patient converted to SR with PAC
[2025-03-07] MEDS: AMIODARONE 360 MG IVPB 360 MG/200 ML BAG 16.667 MG IV (22:42)
[2025-03-07 22:44] LABS: Lactate (Lactic Acid) 0.9 mMol/L (0.4-2.0)
[2025-03-07] MEDS: DIGOXIN INJ 0.25 MG/ML AMP 2 ML IVP (22:54)
[2025-03-07 23:13] LABS: Troponin I 1.653 ng/mL (0.0-0.045)
[2025-03-07 23:49] LABS: Partial Thromboplastin Time 56.9 Seconds (22.0-36.0)
[2025-03-08] VITALS (18 sets, daily range): BP systolic 101–154; BP diastolic 64–97; PULSE 100–142; RESP 18–31; TEMP 36.2–39.1; O2SAT 91–94; BMI 29.3
[2025-03-08] MEDS: ACETAMINOPHEN 325 MG TABLET 650 MG PO ×2 (04:41→15:42)
[2025-03-08] MEDS: DILTIAZEM in D5W 125 MG 125 MG/125 ML BAG 15 MG IV (05:21)
[2025-03-08 05:53] LABS: Basophils # (Auto) 0.0 Thou/mm3 (0.0-0.2); Basophils % (Auto) 0 % (0-2.5); Eosinophils # (Auto) 0.0 Thou/mm3 (0.0-0.5); Eosinophils % (Auto) 0 % (0-10); Hematocrit 28.8 % (41.0-53.0); Hemoglobin 10.2 g/dL (13.5-16.0); Immature Granulocytes Auto 0.03 Thou/mm3 (0.00-0.00); Lymphocytes # (Auto) 0.2 Thou/mm3 (1.0-4.8); Lymphocytes % (Auto) 3 % (10-50); Mean Corpuscular HGB Conc 35.4 g/dl (31.0-37.0); Mean Corpuscular Hemoglobin 26.9 pg (25.0-35.0); Mean Corpuscular Volume 76 fL (80-100); Monocytes # (Auto) 0.3 Thou/mm3 (0.0-0.8); Monocytes % (Auto) 4 % (0-12); Neutrophils # (Auto) 6.0 Thou/mm3 (1.8-7.7); Neutrophils % (Auto) 92 % (37-80); Nucleated Red Blood Cell # 0.00 Thou/mm3 (0.00-0.00); Nucleated Red Blood Cell % 0 /100 WBC (0); Platelet Count 230 Thou/mm3 (140-440); RDW Standard Deviation 37.4 fL (35.1-43.9); Red Blood Count 3.79 Miln/mm3 (4.50-5.90); White Blood Count 6.5 Thou/mm3 (3.8-10.6)
[2025-03-08 06:17] LABS: Partial Thromboplastin Time 59.5 Seconds (22.0-36.0)
[2025-03-08 06:22] LABS: Alanine Aminotransferase 45 U/L (10-49); Albumin, Serum 3.2 gm/dL (3.4-4.8); Albumin/Globulin Ratio 1.4 (1.2-2.2); Alkaline Phosphatase 67 U/L (46-116); Anion Gap 13 (7-16); Aspartate Amino Transferase 91 U/L (0-34); BUN/Creatinine Ratio 17 Ratio (12-20); Bilirubin,Total 0.4 mg/dL (0.3-1.2); Blood Urea Nitrogen 19 mg/dL (9-23); Calcium 7.4 mg/dL (8.3-10.6); Calcium (Corrected) 8.0 mg/dL (8.5-10.1); Carbon Dioxide 15.7 mMol/L (20.0-31.0); Chloride 97 mMol/L (98-107); Creatinine (Component) 1.1 mg/dL (0.6-1.3); Estimated Creatinine Clearance 54.8 mL/min (>60); Globulin 2.3 gm/dL (2.3-3.5); Glucose 107 mg/dL (74-106); Magnesium 1.9 mg/dL (1.6-2.6); Osmolality,Calculated 255 (275-295); Phosphorous 1.9 mg/dL (2.4-5.1); Potassium 2.9 mMol/L (3.4-5.1); Sodium 126 mMol/L (136-145); Total Protein 5.5 gm/dL (5.7-8.2); eGFR > 60 See Note
[2025-03-08] MEDS: cefTRIAXone/D5w 1gm IV premix 1 GM/50 ML BAG IV (08:00)
[2025-03-08] MEDS: AZITHROMYCIN 250 MG TABLET 500 MG PO (08:01)
[2025-03-08] MEDS: ASPIRIN EC 81 MG TABEC PO (08:01)
[2025-03-08] MEDS: PANTOPRAZOLE 40 MG TABLET PO (08:03)
[2025-03-08] MEDS: Magnesium Sulfate 2 GM Ivpb 2 GM/50 ML BAG IV (09:11)
[2025-03-08] MEDS: POTASSIUM CHL 10 mEq IVPB 10 MEQ/100 ML BAG 100 MEQ IV ×2 (09:11→10:14)
[2025-03-08] MEDS: DIGOXIN INJ 0.25 MG/ML AMP 2 ML IVP ×3 (09:11→17:59)
[2025-03-08] MEDS: CALCIUM ACETATE 667 MG TABLET PO (09:16)
[2025-03-08] MEDS: NAPH,KPH MBDB 1 PACKET (1.5 GM) PO (09:16)
[2025-03-08 09:30] LABS: Base Excess, Venous -5 (-3-3); O2 Saturation, Venous 78 % (96-97); PCO2, Venous 27 mmHg (36-56); PO2, Venous 42 mmHg (15-58); pH, Venous 7.43 (7.33-7.66)
[2025-03-08] MEDS: AMIODARONE 360 MG IVPB 360 MG/200 ML BAG 16.667 MG IV (10:18)
--- NOTE | 2025-03-08 12:35 | ESPR_ITS ---
RE: REJI STILES : 1945 DATE OF SERVICE: 03/08/2025 SUBJECTIVE: Mr. Reji Stiles is feeling somewhat better today, though is still requiring oxygen therapy. The patient is not having any symptoms of chest pain. Denies any complaints of skip beats or palpitations. Denies any complaint of fever or chills. Denies any complaint of dizziness or diaphoresis. The patient is eating her clear liquid lunch right now. The patient continued to persist in atrial flutter fibrillation with a fast ventricular response. OBJECTIVE: Vital Signs: The blood pressure is 148/82. The pulse rate is 128 per minute and irregularly irregular. The respiratory rate is 24 per minute. Heart: The heart examination shows irregularly irregular heart rhythm. Lungs: The lung shows decreased breath sound at the basis with few basal rhonchi. Extremities: No pedal edema is noted. LABORATORY DATA: The patient's repeat lab work this morning were reviewed. PLAN: Discontinue the intravenous heparin therapy and we will start the patient on Eliquis 5 mg b.i.d. Aspirin will also be discontinued and the patient will be started back on Plavix 75 mg daily, beta-bebo therapy with metoprolol tartrate will be started as 50 mg b.i.d. The rest of the medications will be continued as before including the IV Cardizem as well as IV amiodarone therapy and once the third bottle of IV amiodarone is finished, the patient will be started on p.o. amiodarone as 200 mg p.o. t.i.d. Rest of the medication will be continued as before. DT: 12:21:56 TT: 12:34:00 Ref: [id number] - TID: [id number]
[2025-03-08 12:39] LABS: Partial Thromboplastin Time 61.9 Seconds (22.0-36.0)
--- NOTE | 2025-03-08 12:44 | ESPR_ITS ---
<Statement entered by Tanvir Santana MD - 03/08/25 17:14> Patient was seen and evaluated at bedside this morning. Overnight patient had another episode of fever which resolved with Tylenol and he had uncontrolled heart rate which was in the 160s to 170s and was given his dose of digoxin which helped improve. This morning patient still had some diaphoresis and had some subjective fevers, but doing okay otherwise. Patient is respiratory rate and dyspnea look a lot better today and he was giving a 3 extra doses of digoxin 0.25 to complete the loading dose and will be on digoxin 0.25 daily, metoprolol to tartrate 50 mg twice daily, amiodarone 200 twice daily will be transition later today from the drip, and patient will also be placed on Eliquis 5 mg starting today. Discontinue diltiazem drip. Nephrology was consulted given electrolyte abnormalities and metabolic acidosis. Continue azithromycin and Rocephin for now. General: A/O x3, no acute distress Eyes: PERRL, EOMI. Anicteric, vision grossly intact. Ears: No ear pain, no ear discharge, Hearing grossly intact. Nose: No nasal discharge. Mouth/Throat: Moist mucous membranes, no redness, no lesions. Neck: Neck supple, non-tender, no cervical lymphadenopathy. Lungs: Mild crackles on L lower lobe, No accessory muscle use. Cardio: Normal S1/S2, irregular rhythm, no murmurs, no JVD Abdomen: Soft, non-tender, no palpable masses, peristalsis present, no guarding or rebound. Extremities: Symmetrical, no significant deformities, no peripheral edema , non-tender, peripheral pulses presents. Skin: No rashes, no lesions, warm to touch. Neuro: No focal neurological deficits. motor and sensory intact Psych: Cooperative, appropriate mood and effect. I have reviewed the note and agree with the medical student's assessment & plan with exceptions as below. I have personally reviewed labs, imaging, home meds/prior records, examined the patient, formulated and discussed management plan with my attending Case disclosed with attending Dr. Savita Santana PGY2 Disclaimer: Even though this this note was dictated by speech recognition and even though it was carefully revised there may still be minor errors in instructional developer due to voice recognition software. Documentation for date of: 03/08/25 Subjective Subjective Interval history: Yesterday in ED pt was administered fluid bolus which precipitated fluid overload, lungs demonstrated crackles on auscultation and pt began gurgling. x1 Bumex was administered and the episode resolved. Overnight, pt had a fever up to highest 102.4 ~0400, resolved with Tylenol. Telemetry showed AFIB and sinus tachycardia up to highest 168. This morning the pt reports subjective fever, diaphoresis. Denies SOB, chest pain, palpitations, chills, dysuria, fatigue, headache. Exam Vital Signs Temp Pulse Resp BP Pulse Ox O2 Del Method O2 Flow Rate 97.6 F 119 H 24 H 144/74 H 92 L Nasal Cannula 3 03/08/25 12:00 03/08/25 12:00 03/08/25 12:00 03/08/25 12:00 03/08/25 12:00 03/08/25 12:00 03/08/25 12:00 FiO2 35 03/07/25 18:35 Narrative Exam General: AOx3, no acute distress, able to speak full sentences HEENT: NC/AT, mucous membranes moist, bilateral sclera anicteric Cardiovascular: tachycardic, regular rhythm, S1/S2 present, no murmurs appreciated. Negative for JVD or edema. Pulmonary: L lung crackles throughout Abdominal: soft, non-tender, non-distended, no rebound/guarding, normal bowel sounds present Musculoskeletal: normal ROM Skin: warm and dry, intact, no rashes Neuro: CN II-XII intact, no focal deficits Objective Labs 03/08/25 05:40 03/08/25 05:40 Labs: Laboratory Results - last 24 hr 03/07/25 03/07/25 03/07/25 12:00 13:39 15:29 WBC RBC Hgb Hct MCV MCH MCHC RDW Std Deviation Plt Count Neut % (Auto) Lymph % (Auto) [place] % (Auto) Eos % (Auto) Baso % (Auto) Neut # (Auto) Lymph # (Auto) [place] # (Auto) Eos # (Auto) Baso # (Auto) Immature Gran # (Auto) Absolute Nucleated RBC Immature Gran % Nucleated RBC % PT 10.8 INR 1.0 APTT 32.0 VBG pH VBG pCO2 VBG pO2 VBG O2 Sat (Mary) VBG Base Excess Sodium 122 L Potassium 3.2 L Chloride 91 L Carbon Dioxide 17.7 L Anion Gap 13 BUN 26 H Creatinine 1.4 H Estim Creat Clear Calc 43.1 L eGFR 52 L BUN/Creatinine Ratio 19 Glucose 135 H Calculated Osmolality 252 L Lactic Acid 2.1 H Calcium 8.3 Corrected Calcium 8.5 Phosphorus Magnesium 2.0 Total Bilirubin 0.7 AST 78 H ALT 38 Alkaline Phosphatase 69 Troponin I 2.399 H* B-Natriuretic Peptide 217 H Total Protein 6.1 Albumin 3.7 Globulin 2.4 Albumin/Globulin Ratio 1.5 Lipase 48 Procalcitonin 7.21 H Influenza A (Rapid) Negative Influenza B (Rapid) Negative 03/07/25 03/07/25 03/07/25 16:10 17:58 22:34 WBC RBC Hgb Hct MCV MCH MCHC RDW Std Deviation Plt Count Neut % (Auto) Lymph % (Auto) [place] % (Auto) Eos % (Auto) Baso % (Auto) Neut # (Auto) Lymph # (Auto) [place] # (Auto) Eos # (Auto) Baso # (Auto) Immature Gran # (Auto) Absolute Nucleated RBC Immature Gran % Nucleated RBC % PT INR APTT 31.2 56.9 H D VBG pH VBG pCO2 VBG pO2 VBG O2 Sat (Mary) VBG Base Excess Sodium 126 L 125 L Potassium 3.3 L Chloride 97 L Carbon Dioxide 16.9 L Anion Gap 12 BUN 21 Creatinine 1.2 Estim Creat Clear Calc 50.2 L eGFR > 60 BUN/Creatinine Ratio 18 Glucose 116 H Calculated Osmolality 257 L Lactic Acid 0.9 Calcium 7.5 L Corrected Calcium 8.0 L Phosphorus 3.0 Magnesium Total Bilirubin AST ALT Alkaline Phosphatase Troponin I 1.953 H* D 1.653 H* D B-Natriuretic Peptide 181 H Total Protein Albumin 3.4 Globulin Albumin/Globulin Ratio Lipase Procalcitonin Influenza A (Rapid) Influenza B (Rapid) 03/08/25 03/08/25 03/08/25 05:40 09:12 11:45 WBC 6.5 RBC 3.79 L Hgb 10.2 L Hct 28.8 L MCV 76 L MCH 26.9 MCHC 35.4 RDW Std Deviation 37.4 Plt Count 230 Neut % (Auto) 92 H Lymph % (Auto) 3 L [place] % (Auto) 4 Eos % (Auto) 0 Baso % (Auto) 0 Neut # (Auto) 6.0 Lymph # (Auto) 0.2 L [place] # (Auto) 0.3 Eos # (Auto) 0.0 Baso # (Auto) 0.0 Immature Gran # (Auto) 0.03 H Absolute Nucleated RBC 0.00 Immature Gran % 1 H Nucleated RBC % 0 PT INR APTT 59.5 H 61.9 H VBG pH 7.43 VBG pCO2 27 L VBG pO2 42 VBG O2 Sat (Mary) 78 L VBG Base Excess -5 L Sodium 126 L Potassium 2.9 L Chloride 97 L Carbon Dioxide 15.7 L Anion Gap 13 BUN 19 Creatinine 1.1 Estim Creat Clear Calc 54.8 L eGFR > 60 BUN/Creatinine Ratio 17 Glucose 107 H Calculated Osmolality 255 L Lactic Acid Calcium 7.4 L Corrected Calcium 8.0 L Phosphorus 1.9 L Magnesium 1.9 Total Bilirubin 0.4 AST 91 H ALT 45 Alkaline Phosphatase 67 Troponin I B-Natriuretic Peptide Total Protein 5.5 L Albumin 3.2 L Globulin 2.3 Albumin/Globulin Ratio 1.4 Lipase Procalcitonin Influenza A (Rapid) Influenza B (Rapid) ABG Interpretation ABG results: 03/08/25 09:12 VBG pH 7.43 VBG pCO2 27 L VBG pO2 42 VBG Base Excess -5 L Quality Measures Quality Measures none Advance care planning discussed with:: patient Assessment & Plan Assessment Current Active Medications: Generic Name Dose Route Start Last Admin Trade Name Freq PRN Reason Stop Dose Admin Acetaminophen 650 mg 03/07/25 15:36 03/08/25 04:41 Acetaminophen 325 Mg Tablet PO 04/06/25 15:35 650 mg Q6H PRN Administration Fever >100.4 Acetaminophen 650 mg 03/07/25 15:36 Acetaminophen 325 Mg Tablet PO 04/06/25 15:35 Q6H PRN PAIN SCALE 1-3 (mild Hydrocodone Bitart/Acetaminophen 1 tab 03/07/25 15:36 Hydrocodone/Apap 5/325 Tablet PO 03/12/25 15:35 Q4HR PRN PAIN SCALE 4-6 (Moderate Aspirin 81 mg 03/08/25 09:00 03/08/25 08:01 Aspirin Ec 81 Mg Tabec PO 04/07/25 08:59 81 mg QDAY SARAH Administration Azithromycin 500 mg 03/08/25 09:00 03/08/25 08:01 Azithromycin 250 Mg Tablet PO 03/10/25 15:44 500 mg QDAY SARAH Administration Digoxin 0.25 mg 03/08/25 08:45 03/08/25 09:11 Digoxin Inj 0.25 Mg/Ml Amp 2 Ml IVP 03/08/25 18:01 0.25 mg Q6HR SARAH Administration Diltiazem HCl 125 mg in 125 mls @ 5 mls/hr 03/07/25 12:38 03/08/25 05:21 Diltiazem In D5w 125 Mg IV 04/06/25 12:37 15 mg/hr .Q24H SARAH 15 mls/hr 5 MG/HR Administration Ceftriaxone Sodium/Dextrose 1 gm in 50 mls @ 100 mls/hr 03/08/25 09:00 03/08/25 08:00 Rocephin/D5w 1gm Iv Premix IV 03/15/25 08:59 100 mls/hr QDAY SARAH Administration Amiodarone HCl/Dextrose 360 mg in 200 mls @ 16.667 mls/hr 03/07/25 21:52 03/08/25 10:18 Nexterone Ivpb IV 03/08/25 21:51 16.667 mls/hr .Q12H SARAH Administration Heparin Sodium/Dextrose 25,000 unit in 250 mls @ 9.6 mls/hr 03/07/25 15:45 03/08/25 06:24 Heparin In D5w Ivpb IV 03/21/25 15:44 12 units/kg/hr .Q24H SARAH 9.6 mls/hr Protocol Titration 12 UNITS/KG/HR Ondansetron HCl 4 mg 03/07/25 15:36 Ondansetron Inj 2 Mg/Ml Inj 2 Ml IVP 04/06/25 15:35 Q6H PRN NAUSEA OR VOMITING Protocol Pantoprazole Sodium 40 mg 03/07/25 15:45 03/08/25 08:03 Pantoprazole 40 Mg Tablet PO 04/06/25 15:44 40 mg QDAY SARAH Administration Plan 79yo M w/ PMH AFIB (on Plavix), CAD s/p PCI in 2022, HTN, HLD who came to ED from PCP w/ complaint of x4 days weakness, dizziness, cough, SOB beginning before admission. CXR showed bibasilar pneumo, EKG showed AFIB w/ ST depressions. Admitted for management of sepsis and AFIB w/ NSTEMI. #Sepsis 2/2 CAP Pt reported productive cough, headache, subjective fever on admit. Additionally reported poor oral intake for 4 days before admit. Lungs CTA b/l on admission however ED CXR suggested bibasilar pneumonia. Pt met SIRS criteria on admit with tachycardia, tachypnea, and further sepsis criteria w/ evidence of end-organ damage with elevated troponin as below and creatinine 1.4/BUN 24. WBCs were normal in ED but Procalcitonin was elevated to 7.21 at that time. He is s/p 30ccs/kg fluid (2500ccs). Repeat CXR showed worsening L lung pneumonia and pt spiked a fever to 102.4 overnight. Lactic Acid 2.7 on admit but WNL today. - Blood cx, urine cx, UA pending - Cont PO Zithromax 500mg qD, IV Rocephin. - PO Zofran for symptomatic relief. - Trend CBC in AM #AFIB w/ RVR #NSTEMI Type I vs II w/ elevated troponins #?CHF unknown EF Pt reported SOB/exercise intolerance x4 days prior to admit, denies chest pain, palpitations, swelling. ED EKG showed AFIB w/ ST depressions concerning for mixed picture AFIB and NSTEMI. He is s/p PCI in 2022. Troponin in ED elevated to 2.399, downtrending latest Trop 1.653. BNP in ED elevated to 217, repeat downtrended to 181. AFIB was rate controlled at home w/ Met Tartrate 50mgBID, in ED pt was tachy to 170s. Pt was tachy overnight with episodes of AFIB. Pt has no history of CHF, however following 2500cc fluid administration in ED per sepsis protocol he became short of breath, lungs showed crackles on auscultation, pt began gurgling fluids. This was concerning for a component of heart failure, latest echocardiogram unavailable. At this stage etiology of AFIB is unclear as pt reports good control at home, most likely current episode is stress induced in setting of sepsis w/ concomitant demand ischemia vs true NSTEMI Type I Pt had previously been hospitalized 10/2024 during which time TSH, Lipid Panel, HA1c were all WNL. HEART Score 8 (50-65% risk of MACE) - Pt's clinical services professional Dr. Brody consulted, appreciate recommendations as below. - ECHO ordered to characterize CHF status - Discontinued heparin, ASA, IV Digoxin, IV Diltiazem - Start PO Eliquis 5mg BID, PO Plavix 75mg qD - Start PO Digoxin 0.25mg qD, PO Metoprolol Tartrate 50mg BID, PO Amiodarone 200mg TID following completion of 3rd bottle IV Amiodarone - PO Protonix 40mg GI prophylaxis - Trend troponin q6 #Metabolic Acidosis #Hyponatremia #Hypokalemia #Hypochloremia Sodium 122 on admit, Potassium 3.2. Currently sodium is 126 with goal of 128+. Potassium overnight dropped to 2.9 and was repleted. Current chloride 97. 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 However these electrolyte derangements raise concern for metabolic acidosis despite kidney function improving. Given pt O2 requirements have steadily increased and he is currently on 3LNC satting 91%, concerning for a respiratory alkalosis with secondary metabolic acidosis. Etiology of this unclear in setting of sepsis and NSTEMI. - Will consult Nephro Dr. Warner - Replete as necessary #Microcytic Anemia Hgb on admit 11.3, MCV 78. Hgb today 10.2. Hold on iron supplementation at this stage d/t concern of infection. - Monitor CBC in AM #PHYLLIS (resolved) Present on admission most likely etiology as end-organ damage in the setting of sepsis, however Creatinine 1.1 and BUN 19 today from 1.4/24 respectively. Most likely resolved with 2.5L fluid administration in ED. Hospital management: Disposition: Observe overnight response to cardioregulatory and anti-infection medications + fluid administrations. Diet: Cardiac Lines: peripheral IVs DVT prophylaxis: Heparin GI prophylaxis: PO Protonix CODE STATUS: full code ----- Plan discussed with attending physician Dr. Savita Johnson, Medical Student [facility] Attending Provider Attestation/Addendum I have discussed and was present for the essential components of the history, physical examination, diagnosis, and treatment plan with the resident. I agree with the patient's care as documented by the resident and amended herein by me. Maged Barney DO. Although this document has been carefully reviewed, there may still be some phonetic and other typographical errors. These errors are purely grammatical due to imperfections in the software program and should not be construed in any way to compromise the substance of the patient's medical care during this visit. Patient seen and evaluated this AM. In short, 79yo M w/ PMH AFIB (on Plavix), CAD s/p PCI in 2022, HTN, HLD who came to ED from PCP w/ complaint of x4 days weakness, dizziness, cough, SOB beginning before admission. CXR showed bibasilar pneumo, EKG showed AFIB w/ ST depressions. Admitted for management of sepsis 2/2 to CAP, AFIB w/ NSTEMI. No acute events overnight, patient was normotensive, patient was tachycardic with a rate in the 120s to 130s, patient mildly tachypneic this morning, on nasal cannula, 3 L SpO2 92%. I/O 3248/1850 mL. Significant labs include a hemoglobin of 10.2, MCV 76, VBG performed this morning indicates a pH 7.43, pCO2 27, sodium 126, potassium 2.9, chloride 97 and a carbon dioxide of 15.7. Corrected calcium was 8, troponin has down trended to 1.653 from 1.9. Last chest x-ray performed on 03/07 demonstrating a significant left lung pneumonia. For the patient's pneumonia, will continue ceftriaxone and azithromycin, for the patient's NSTEMI, cardiology consulted, will change her on a few medications today, will continue amiodarone however converted to p.o. 200 mg twice 3 times daily, will continue digoxin 0.25 mg p.o. daily, aspirin has been discontinued however Plavix started 75 mg p.o. daily, patient also started on Eliquis 5 mg p.o. twice daily, heparin drip has been discontinued. Patient also started on metoprolol to tartrate 50 mg p.o. twice daily. All other medications will be continued however I do think the diltiazem drip can be discontinued as it does not seem to be doing much good at this point however will check with cardiology. Patient is also demonstrating hyponatremia, hypokalemia, hyperchloremia and a worsening primary respiratory alkalosis with a secondary metabolic acidosis with a associated metabolic alkalosis, unclear etiology in setting of sepsis and NSTEMI, will consult nephrology for further recommendations recommendations. Echo pending
[2025-03-08] MEDS: APIXABAN 2.5 MG TABLET 5 MG PO ×2 (13:03→21:10)
--- NOTE | 2025-03-08 15:58 | PD.RESCONSUL ---
HPI Data of Consult Consult date: 03/08/25 Requesting Physician: Aníbal Barney DO Admitting Provider: Brett Cardenas MD Attending Provider: Aníbal Barney DO Primary Care Provider: Aniceto Johnson MD Consult Narrative Reason for consult: hyponatremia/hypokalemia in setting of sepsis and cardiac dysfunction History of present illness: 79-year-old male with history of atrial fibrillation (not on anticoagulation), CAD s/p PCI (2022, on Plavix), hypertension, and hyperlipidemia who was admitted on 03/07/2025 with weakness, shortness of breath, and dizziness for 4 days. In the ED, he was found to have sepsis secondary to community-acquired pneumonia, lactic acidosis, PHYLLIS (Cr 1.4), troponin elevation (2.39 ng/mL), and atrial fibrillation with RVR. He received 2.5 L of IV fluids for sepsis protocol but later developed pulmonary congestion requiring Bumex 1 mg IV. Electrolytes revealed hyponatremia (Na 122 mmol/L) and hypokalemia (K 3.2 mmol/L) on admission. Sodium has improved to 126 mmol/L after fluid resuscitation, while potassium dropped again to 2.9 mmol/L and was repleted. PTH and thyroid studies normal; glucose normal. The patient remains hemodynamically stable and oriented, denying confusion, nausea, vomiting, or seizures. No history of diuretic overuse or excessive free-water intake. Currently on Bumex PRN and receiving IV antibiotics (ceftriaxone, azithromycin). Urine output preserved. ROS: Negative for confusion, vomiting, diarrhea, or dysuria. Positive for weakness and mild shortness of breath. cc:: cc: Aníbal Barney DO Exam Vital Signs Temp Pulse Resp BP Pulse Ox O2 Del Method O2 Flow Rate 100.5 F H 119 H 24 H 144/74 H 92 L Nasal Cannula 3 03/08/25 15:42 03/08/25 13:01 03/08/25 12:00 03/08/25 13:01 03/08/25 12:00 03/08/25 12:00 03/08/25 12:00 FiO2 35 03/07/25 18:35 Narrative Exam General: Alert, conversant, no acute distress. Lungs: Bibasilar crackles, left > right. Cardiac: Irregularly irregular rhythm, no murmurs, no JVD. Abdomen: Soft, non-tender, normoactive bowel sounds. Extremities: No significant edema. Neuro: No focal deficits. Skin: Warm, dry. : Augustin in place with adequate clear urine output. Results Labs 03/08/25 05:40 03/08/25 05:40 Labs: Short CBC 03/08/25 Range/Units 05:40 WBC 6.5 (3.8-10.6) Thou/mm3 Hgb 10.2 L (13.5-16.0) g/dL Hct 28.8 L (41.0-53.0) % Plt Count 230 (140-440) Thou/mm3 BMP 03/07/25 03/07/25 03/08/25 16:10 17:58 05:40 Sodium 126 L 125 L 126 L Potassium 3.3 L 2.9 L Chloride 97 L 97 L Carbon Dioxide 16.9 L 15.7 L BUN 21 19 Creatinine 1.2 1.1 Glucose 116 H 107 H Calcium 7.5 L 7.4 L Cardiac Enzymes 03/07/25 03/07/25 Range/Units 16:10 22:34 Troponin I 1.953 H* D 1.653 H* D (0.0-0.045) ng/mL Liver Function 03/07/25 03/08/25 Range/Units 16:10 05:40 Total Bilirubin 0.4 (0.3-1.2) mg/dL AST 91 H (0-34) U/L ALT 45 (10-49) U/L Alkaline Phosphatase 67 (46-116) U/L Albumin 3.4 3.2 L (3.4-4.8) gm/dL ABG Interpretation ABG results: 03/08/25 09:12 VBG pH 7.43 VBG pCO2 27 L VBG pO2 42 VBG Base Excess -5 L Quality Measures Quality Measures VTE prophylaxis Advance care planning discussed with:: patient Medications Home Medications and Allergies Home Medications ?Medication ?Instructions ?Recorded ?Confirmed ?Type amlodipine 10 mg tablet 10 mg PO QDAY 01/01/22 03/08/25 History atorvastatin 40 mg tablet 80 mg PO QDAY 01/01/22 03/08/25 History metoprolol tartrate 50 mg tablet 50 mg PO BID 01/01/22 03/08/25 History quinapril 40 mg tablet 40 mg PO QDAY 01/01/22 03/08/25 History clopidogrel 75 mg tablet (Plavix) 75 mg PO QDAY 09/10/22 03/08/25 History nitroglycerin 0.4 mg sublingual 1 mg buccal [id number] PRN Pain 09/10/22 03/08/25 History tablet losartan 50 mg tablet 50 mg PO QDAY 03/08/25 03/08/25 History Allergies Allergy/AdvReac Type Severity Reaction Status Date / Time No Known Allergies Allergy Verified 09/11/22 11:11 Visit Medications Acetaminophen (Acetaminophen 325 Mg Tablet) 650 mg PO Q6H PRN PRN Reason: Fever >100.4 Stop: 04/06/25 15:35 Last Admin: 03/08/25 15:42 Dose: 650 mg Acetaminophen (Acetaminophen 325 Mg Tablet) 650 mg PO Q6H PRN PRN Reason: PAIN SCALE 1-3 (mild Stop: 04/06/25 15:35 Hydrocodone Bitart/Acetaminophen (Hydrocodone/Apap 5/325 Tablet) 1 tab PO Q4HR PRN PRN Reason: PAIN SCALE 4-6 (Moderate Stop: 03/12/25 15:35 Amiodarone HCl (Amiodarone Hcl 200 Mg Tablet) 200 mg PO TID SARAH Stop: 04/07/25 21:59 Apixaban (Apixaban 2.5 Mg Tablet) 5 mg PO BID SARAH Stop: 04/07/25 20:59 Azithromycin (Azithromycin 250 Mg Tablet) 500 mg PO QDAY SARAH Stop: 03/10/25 15:44 Last Admin: 03/08/25 08:01 Dose: 500 mg Clopidogrel Bisulfate (Clopidogrel Bisulfate 75 Mg Tablet) 75 mg PO QDAY SARAH Stop: 04/08/25 08:59 Digoxin (Digoxin Inj 0.25 Mg/Ml Amp 2 Ml) 0.25 mg IVP Q6HR SARAH Stop: 03/08/25 18:01 Last Admin: 03/08/25 13:01 Dose: 0.25 mg Digoxin (Digoxin 0.125 Mg Tablet) 0.25 mg PO QDAY [facility] Stop: 04/08/25 08:59 Ceftriaxone Sodium/Dextrose (Rocephin/D5w 1gm Iv Premix) 1 gm in 50 mls @ 100 mls/hr IV QDAY SARAH Stop: 03/15/25 08:59 Last Admin: 03/08/25 08:00 Dose: 100 mls/hr Amiodarone HCl/Dextrose (Nexterone Ivpb) 360 mg in 200 mls @ 16.667 mls/hr IV .Q12H [facility] Stop: 03/08/25 21:51 Last Admin: 03/08/25 10:18 Dose: 16.667 mls/hr Metoprolol Tartrate (Metoprolol Tartrate 25 Mg Tablet) 50 mg PO BID [facility] Stop: 04/07/25 20:59 Ondansetron HCl (Ondansetron Inj 2 Mg/Ml Inj 2 Ml) 4 mg IVP Q6H PRN; Protocol PRN Reason: NAUSEA OR VOMITING Stop: 04/06/25 15:35 Pantoprazole Sodium (Pantoprazole 40 Mg Tablet) 40 mg PO QDAY [facility] Stop: 04/06/25 15:44 Last Admin: 03/08/25 08:03 Dose: 40 mg Discontinued Medications Apixaban (Apixaban 2.5 Mg Tablet) 5 mg PO X1 ONE Stop: 03/08/25 13:01 Last Admin: 03/08/25 13:03 Dose: 5 mg Aspirin (Aspirin 325 Mg Tablet) 325 mg PO X1 ONE Stop: 03/07/25 13:22 Last Admin: 03/07/25 15:09 Dose: Not Given Aspirin (Aspirin 81 Mg Chew) 162 mg PO X1 ONE Stop: 03/07/25 13:31 Last Admin: 03/07/25 13:33 Dose: 162 mg Aspirin (Aspirin Ec 81 Mg Tabec) 81 mg PO QDAY [facility] Stop: 04/07/25 08:59 Last Admin: 03/08/25 08:01 Dose: 81 mg Bumetanide (Bumetanide Inj 0.25 Mg/Ml Vial 4 Ml) 1 mg IVP X1 ONE Stop: 03/07/25 17:11 Last Admin: 03/07/25 18:00 Dose: 1 mg Calcium Acetate (Calcium Acetate 667 Mg Tablet) 667 mg PO X1 ONE Stop: 03/08/25 08:11 Last Admin: 03/08/25 09:16 Dose: 667 mg Digoxin (Digoxin Inj 0.25 Mg/Ml Amp 2 Ml) 0.5 mg IVP X1 ONE Stop: 03/07/25 17:14 Last Admin: 03/07/25 17:45 Dose: 0.5 mg Digoxin (Digoxin Inj 0.25 Mg/Ml Amp 2 Ml) 0.25 mg IVP X1 ONE Stop: 03/07/25 23:16 Last Admin: 03/07/25 22:54 Dose: 0.25 mg Diltiazem HCl (Diltiazem Inj 5 Mg/Ml Vial 5 Ml) 15 mg IV X1 ONE Stop: 03/07/25 12:01 Last Admin: 03/07/25 12:15 Dose: 15 mg Diltiazem HCl (Diltiazem Inj 5 Mg/Ml Vial 5 Ml) 15 mg IV X1 ONE Stop: 03/07/25 12:38 Last Admin: 03/07/25 12:51 Dose: 15 mg Heparin Sodium (Porcine) (Heparin Sod Inj 5000 Unit/Ml Vial) 4,000 unit IV X1 ONE; Protocol Stop: 03/07/25 15:42 Last Admin: 03/07/25 16:46 Dose: 4,000 unit Sodium Chloride (Ns) 1,000 mls @ 999 mls/hr IV .Q1H1M ONE Stop: 03/07/25 13:14 Last Infusion: 03/07/25 13:18 Dose: Infused Diltiazem HCl (Diltiazem In D5w 125 Mg) 125 mg in 125 mls @ 5 mls/hr IV .Q24H SARAH Stop: 04/06/25 12:37 Last Admin: 03/08/25 05:21 Dose: 15 mg/hr, 15 mls/hr Potassium Chloride (Kcl Ivpb) 10 meq in 100 mls @ 100 mls/hr IV Q1H SARAH Stop: 03/07/25 17:43 Last Admin: 03/07/25 18:06 Dose: 100 mls/hr Sodium Chloride (Ns) 1,000 mls @ 999 mls/hr IV .Q1H1M ONE Stop: 03/07/25 14:45 Last Infusion: 03/07/25 16:03 Dose: Infused Azithromycin 500 mg/ Sodium (Chloride) 250 mls @ 250 mls/hr IV X1 ONE Stop: 03/07/25 14:44 Last Infusion: 03/07/25 16:29 Dose: Infused Ceftriaxone Sodium/Dextrose (Rocephin/D5w 1gm Iv Premix) 1 gm in 50 mls @ 100 mls/hr IV X1 ONE Stop: 03/07/25 14:14 Last Infusion: 03/07/25 15:09 Dose: Infused Sodium Chloride (Ns) 1,000 mls @ 999 mls/hr IV .Q1H1M ONE Stop: 03/07/25 15:21 Last Admin: 03/07/25 15:28 Dose: Not Given Amiodarone HCl/Dextrose (Nexterone Ivpb) 150 mg in 100 mls @ 600 mls/hr IV .Q10M ONE Stop: 03/07/25 15:51 Last Infusion: 03/07/25 16:13 Dose: Infused Amiodarone HCl/Dextrose (Nexterone Ivpb) 360 mg in 200 mls @ 33.333 mls/hr IV .Q6H ONE Stop: 03/07/25 21:51 Last Infusion: 03/07/25 16:38 Dose: 33.333 mls/hr Heparin Sodium/Dextrose (Heparin In D5w Ivpb) 25,000 unit in 250 mls @ 9.6 mls/hr IV .Q24H SARAH; Protocol Stop: 03/21/25 15:44 Last Titration: 03/08/25 13:15 Dose: 0 units/kg/hr, 0 mls/hr Sodium Chloride (Ns) 500 mls @ 999 mls/hr IV .Q31M ONE Stop: 03/07/25 16:17 Last Infusion: 03/07/25 17:06 Dose: Infused Potassium Chloride (Kcl Ivpb) 10 meq in 100 mls @ 100 mls/hr IV Q1H SARAH Stop: 03/08/25 10:06 Last Admin: 03/08/25 10:14 Dose: 100 mls/hr Magnesium Sulfate (Magnesium Sulfate Ivpb) 2 gm in 50 mls @ 25 mls/hr IV X1 ONE Stop: 03/08/25 10:33 Last Admin: 03/08/25 09:11 Dose: 25 mls/hr Potassium Chloride (Potassium Chloride 20 Meq Tabcr) 40 meq PO X1 ONE Stop: 03/08/25 08:08 Last Admin: 03/08/25 09:16 Dose: 40 meq Potassium Phos/Sodium Phos (Naph,[facility] 1 Packet (1.5 Gm)) 1 packet PO X1 ONE Stop: 03/08/25 08:11 Last Admin: 03/08/25 09:16 Dose: 1 packet Assessment & Plan Plan 79M with sepsis secondary to pneumonia, AFib with RVR, NSTEMI, and transient PHYLLIS. Now improving but with persistent hyponatremia and recurrent hypokalemia likely secondary to SIADH in setting of pulmonary infection versus combination of poor oral intake and diuretic effect. Renal function recovered. No acute indication for dialysis. # Electrolyte Monitoring / Possible SIADH # Hyponatremia Likely multifactorial: sepsis-induced appropriate increase in ADH + mild volume contraction. Currently asymptomatic. Plan: Fluid restriction to 1.2 L/day. Trend serum Na (goal 128?130). Check serum and urine osmolality, urine Na, and uric acid. Monitor for worsening hyponatremia or neurologic symptoms. If sodium fails to rise or worsens, consider tolvaptan. # Hypokalemia Likely due to prior diuretic exposure and intracellular shift post-correction of acidosis. Plan: Replete with KCl 40 mEq PO or IV as tolerated; maintain >4.0 mmol/L. Check Mg and replete if <2.0 mg/dL. Avoid excessive Bumex dosing. # PHYLLIS, resolved Transient, likely prerenal from sepsis and decreased effective circulating volume. Plan: Continue to monitor renal function daily. Avoid nephrotoxins (NSAIDs, contrast). ----- Plan discussed with attending physician Dr. Alana Welsh MD PGY-1 Internal Medicine Attending Provider Attestation/Addendum Patient seen and examined with resident physician Dr. Welsh. Note reviewed, agree with findings and recommendations. Patient with hyponatremia-improved with fluids. Clinically seems to be euvolemic. Agree with fluid restriction. Will monitor serum sodium closely. Urine lytes ordered. Thank you Maged for allowing me to participate in the care of Mr. Skelton
[2025-03-08 16:03] LABS: Collection Type, Urine Clean Catch; Squamous Epithelial Cell,Urine 0 /hpf (0-5)
[2025-03-08 16:34] LABS: Amorphous Crystals,Urine Present (Absent); Bilirubin,Urine Negative (Negative); Blood,Urine 2+ (Negative); Clarity,Urine Turbid (Clear/Hazy); Color,Urine Yellow (Lt Yel-Yel); Culture Indicated,Urine Not Indicated; Glucose, Urine Negative (Negative); Ketones,Urine Negative (Negative); Leukocyte Esterase,Urine Negative (Negative); Nitrite,Urine Negative (Negative); PH,Urine 5.5 (5.0-7.0); Protein,Urine 1+ (Neg - Trace); RBC,Urine 3 /hpf (0-3); Red Blood Cell Casts,Urine 1 /hpf (0-1); Specific Gravity,Urine 1.018 (1.001-1.035); Urobilinogen,Urine Negative mg/dL (0.0-1.0); WBC,Urine 1 /hpf (0-5)
[2025-03-08 16:35] LABS: Sodium,Urine Random 24.4 mMol/L (20.0-110.0)
[2025-03-08 16:37] LABS: Uric Acid 4.5 mg/dL (3.7-9.2)
[2025-03-08] MEDS: METOPROLOL TARTRATE 25 MG TABLET 50 MG PO (21:10)
[2025-03-08] MEDS: AMIODARONE HCL 200 MG TABLET PO (22:29)
[2025-03-09] VITALS (17 sets, daily range): BP systolic 108–157; BP diastolic 62–85; PULSE 77–130; RESP 17–94; TEMP 36.2–37.2; O2SAT 92–95; BMI 30.9
[2025-03-09] MEDS: AMIODARONE HCL 200 MG TABLET PO ×3 (05:13→21:26)
[2025-03-09 05:57] LABS: Basophils # (Auto) 0.0 Thou/mm3 (0.0-0.2); Basophils % (Auto) 0 % (0-2.5); Eosinophils # (Auto) 0.0 Thou/mm3 (0.0-0.5); Eosinophils % (Auto) 0 % (0-10); Hematocrit 30.5 % (41.0-53.0); Hemoglobin 10.6 g/dL (13.5-16.0); Immature Granulocytes Auto 0.04 Thou/mm3 (0.00-0.00); Lymphocytes # (Auto) 0.4 Thou/mm3 (1.0-4.8); Lymphocytes % (Auto) 6 % (10-50); Mean Corpuscular HGB Conc 34.8 g/dl (31.0-37.0); Mean Corpuscular Hemoglobin 26.8 pg (25.0-35.0); Mean Corpuscular Volume 77 fL (80-100); Monocytes # (Auto) 0.4 Thou/mm3 (0.0-0.8); Monocytes % (Auto) 7 % (0-12); Neutrophils # (Auto) 5.3 Thou/mm3 (1.8-7.7); Neutrophils % (Auto) 87 % (37-80); Nucleated Red Blood Cell # 0.00 Thou/mm3 (0.00-0.00); Nucleated Red Blood Cell % 0 /100 WBC (0); Platelet Count 231 Thou/mm3 (140-440); RDW Standard Deviation 39.0 fL (35.1-43.9); Red Blood Count 3.96 Miln/mm3 (4.50-5.90); White Blood Count 6.1 Thou/mm3 (3.8-10.6)
[2025-03-09 06:16] LABS: INR 1.0 (0.9-1.3); Partial Thromboplastin Time 36.3 Seconds (22.0-36.0); Prothrombin Time 10.5 Seconds (9.0-12.2)
[2025-03-09 06:27] LABS: Alanine Aminotransferase 70 U/L (10-49); Albumin, Serum 3.4 gm/dL (3.4-4.8); Albumin/Globulin Ratio 1.4 (1.2-2.2); Alkaline Phosphatase 83 U/L (46-116); Anion Gap 11 (7-16); Aspartate Amino Transferase 124 U/L (0-34); BUN/Creatinine Ratio 15 Ratio (12-20); Bilirubin,Total 0.4 mg/dL (0.3-1.2); Blood Urea Nitrogen 15 mg/dL (9-23); Calcium 7.9 mg/dL (8.3-10.6); Calcium (Corrected) 8.4 mg/dL (8.5-10.1); Carbon Dioxide 20.0 mMol/L (20.0-31.0); Chloride 94 mMol/L (98-107); Creatinine (Component) 1.0 mg/dL (0.6-1.3); Estimated Creatinine Clearance 61.8 mL/min (>60); Globulin 2.4 gm/dL (2.3-3.5); Glucose 88 mg/dL (74-106); Magnesium 2.4 mg/dL (1.6-2.6); Osmolality,Calculated 251 (275-295); Phosphorous 2.1 mg/dL (2.4-5.1); Potassium 3.3 mMol/L (3.4-5.1); Sodium 125 mMol/L (136-145); Total Protein 5.8 gm/dL (5.7-8.2); eGFR > 60 See Note
[2025-03-09] MEDS: cefTRIAXone/D5w 1gm IV premix 1 GM/50 ML BAG IV (08:07)
[2025-03-09] MEDS: POTASSIUM CHL 10 mEq IVPB 10 MEQ/100 ML BAG 100 MEQ IV ×2 (08:08→08:59)
[2025-03-09] MEDS: METOPROLOL TARTRATE 25 MG TABLET 50 MG PO ×2 (08:08→08:42)
[2025-03-09] MEDS: APIXABAN 2.5 MG TABLET 5 MG PO ×2 (08:08→21:25)
[2025-03-09] MEDS: NAPH,KPH MBDB 1 PACKET (1.5 GM) PO (08:09)
[2025-03-09] MEDS: DIGOXIN 0.125 MG TABLET 0.25 MG PO (08:09)
[2025-03-09] MEDS: PANTOPRAZOLE 40 MG TABLET PO (08:09)
[2025-03-09] MEDS: AZITHROMYCIN 250 MG TABLET 500 MG PO (08:09)
[2025-03-09] MEDS: CLOPIDOGREL BISULFATE 75 MG TABLET PO (08:11)
--- NOTE | 2025-03-09 08:43 | ESPR_ITS ---
RE: NATALIE STILES : 1945 DATE OF SERVICE: 03/09/2025 SUBJECTIVE: Mr. Stiles is feeling somewhat better today. The patient is resting comfortably in bed. The patient is breathing fairly well, though is still requiring oxygen. Denies any complaint of chest pain. Denies any complaints of skipped beats or palpitations. OBJECTIVE: Vital Signs: The patient's blood pressure today is 152/82. The pulse rate is 120 per minute and irregularly irregular. Respiratory rate is 20. Heart: The heart examination is clear. Heart rhythm is still staying in atrial flutter fibrillation with fast ventricular response. Lungs: The lung shows few basal rhonchi, more so on the left lung base. Extremities: No pedal edema is noted. LABORATORY DATA: The cardiac echo Doppler study done yesterday showed normal left ventricular systolic function with normal left atrial size, [id number] mitral regurgitation, mild tricuspid regurgitation, and trace aortic regurgitation. PLAN: Plan to increase the dose of the metoprolol from 50 mg b.i.d. to 100 mg b.i.d. The rest of the medications will be continued as before. Intravenous antibiotic therapy as well as general supportive care will be continued. Anticoagulant therapy will be continued. DT: 08:18:38 TT: 08:41:00 Ref: [id number] - TID: [id number]
--- NOTE | 2025-03-09 09:01 | PC.SS ---
STEAM SHOVEL OILER informed bedside nurse of need to conduct room air evaluation to confirm patient's need for home oxygen.
--- NOTE | 2025-03-09 09:35 | PC.SS ---
SKILLED HELPER conducted bedside contact with the patient conduct initial assessment and to discuss discharge planning.? Patient confirmed demographic information.? Patient is retired, [employer] .? Patient resides at home with spouse, Delma Skelton .? Patient does not utilize any form of DME to assist with ambulation.? Patient does not utilize home oxygen.? Patient is currently on 3L oxygen.? Patient describes the ability to complete ADL?s independently.? Patient identified spouse, Delma Skelton; as medical surrogate decision maker.? Patient?s PCP is Dr. Johnson.? Patient?s multiple games dealer is Dr. Brody.? Patient does not participate with dialysis.? [facility].? Plan is for the patient to return home at the time of discharge.? Family will provide transportation on behalf of the patient.? No further discharge needs identified by the patient.? No further intervention required at this time, social services manager will be available to address any further concerns.? Next of Kin: Delma Skelton D/C Plan: Home
--- NOTE | 2025-03-09 09:37 | ESPR_ITS ---
Documentation for date of: 03/09/25 Subjective Subjective Interval history: Reason for consult: hyponatremia/hypokalemia in setting of sepsis and cardiac dysfunction History of present illness: 79-year-old male with history of atrial fibrillation (not on anticoagulation), CAD s/p PCI (2022, on Plavix), hypertension, and hyperlipidemia who was admitted on 03/07/2025 with weakness, shortness of breath, and dizziness for 4 days. In the ED, he was found to have sepsis secondary to community-acquired pneumonia, lactic acidosis, PHYLLIS (Cr 1.4), troponin elevation (2.39 ng/mL), and atrial fibrillation with RVR. He received 2.5 L of IV fluids for sepsis protocol but later developed pulmonary congestion requiring Bumex 1 mg IV. Electrolytes revealed hyponatremia (Na 122 mmol/L) and hypokalemia (K 3.2 mmol/L) on admission. Sodium has improved to 126 mmol/L after fluid resuscitation, while potassium dropped again to 2.9 mmol/L and was repleted. PTH and thyroid studies normal; glucose normal. The patient remains hemodynamically stable and oriented, denying confusion, nausea, vomiting, or seizures. No history of diuretic overuse or excessive free-water intake. Currently on Bumex PRN and receiving IV antibiotics (ceftriaxone, azithromycin). Urine output preserved. ROS: Negative for confusion, vomiting, diarrhea, or dysuria. Positive for weakness and mild shortness of breath. 03/09/2025: Patient seen at bedside this morning. He is alert, oriented, and in no acute distress. Denies shortness of breath, chest pain, dizziness, or confusion. Augustin draining clear yellow urine. Vital signs show BP 157/85, HR 102. Labs today reveal sodium decreased slightly to 125 mmol/L, though fluid restriction was initiated only late yesterday. Potassium remains mildly low at 3.3 mmol/L, currently being repleted by primary team. Creatinine stable at 1.0 mg/dL with good urine output. Serum osmolality 251 mOsm/kg, uric acid 4.5 mg/dL (not suggestive of SIADH), corrected calcium 8.4 mg/dL, phosphorus 2.1 mg/dL, magnesium 2.4 mg/dL. Urine sodium 24.4 mmol/L; urine osmolality still pending. Patient remains hemodynamically stable and asymptomatic. Exam Vital Signs Temp Pulse Resp BP Pulse Ox O2 Del Method O2 Flow Rate 98.1 F 102 H 17 157/85 H 92 L Nasal Cannula 3 03/09/25 08:00 03/09/25 08:42 03/09/25 08:00 03/09/25 08:42 03/09/25 08:00 03/09/25 08:00 03/09/25 08:00 FiO2 35 03/07/25 18:35 Narrative Exam General: Alert, conversant, no acute distress. Lungs: Bibasilar crackles, left > right. Cardiac: Irregularly irregular rhythm, no murmurs, no JVD. Abdomen: Soft, non-tender, normoactive bowel sounds. Extremities: No significant edema. Neuro: No focal deficits. Skin: Warm, dry. : Augustin in place with adequate clear urine output. Objective Labs 03/09/25 05:31 03/09/25 05:31 Labs: Laboratory Results - last 24 hr 03/08/25 03/08/25 03/09/25 11:45 15:45 05:31 WBC 6.1 RBC 3.96 L Hgb 10.6 L Hct 30.5 L MCV 77 L MCH 26.8 MCHC 34.8 RDW Std Deviation 39.0 Plt Count 231 Neut % (Auto) 87 H Lymph % (Auto) 6 L Meagher % (Auto) 7 Eos % (Auto) 0 Baso % (Auto) 0 Neut # (Auto) 5.3 Lymph # (Auto) 0.4 L Meagher # (Auto) 0.4 Eos # (Auto) 0.0 Baso # (Auto) 0.0 Immature Gran # (Auto) 0.04 H Absolute Nucleated RBC 0.00 Immature Gran % 1 H Nucleated RBC % 0 PT 10.5 INR 1.0 APTT 61.9 H 36.3 H D Sodium 125 L Potassium 3.3 L Chloride 94 L Carbon Dioxide 20.0 Anion Gap 11 BUN 15 Creatinine 1.0 Estim Creat Clear Calc 61.8 eGFR > 60 BUN/Creatinine Ratio 15 Glucose 88 Calculated Osmolality 251 L Uric Acid 4.5 Calcium 7.9 L Corrected Calcium 8.4 L Phosphorus 2.1 L Magnesium 2.4 Total Bilirubin 0.4 AST 124 H ALT 70 H Alkaline Phosphatase 83 D Total Protein 5.8 Albumin 3.4 Globulin 2.4 Albumin/Globulin Ratio 1.4 Ur Collection Type Clean Catch Urine Color Yellow Urine Clarity Turbid A Urine pH 5.5 Ur Specific [place] 1.018 Urine Protein 1+ A Urine Glucose (UA) Negative Urine Ketones Negative Urine Blood 2+ A Urine Nitrite Negative Urine Bilirubin Negative Urine Urobilinogen (Auto) Negative Ur Leukocyte Esterase Negative Urine RBC 3 Urine WBC 1 Ur Squamous Epith Cells 0 Amorphous Crystals Present A Urine Bacteria None RBC Casts 1 Ur Culture Indicated? Not Indicated Ur Random Sodium 24.4 ABG Interpretation ABG results: 03/08/25 09:12 VBG pH 7.43 VBG pCO2 27 L VBG pO2 42 VBG Base Excess -5 L Quality Measures Quality Measures VTE prophylaxis Advance care planning discussed with:: patient Assessment & Plan Assessment Current Active Medications: Generic Name Dose Route Start Last Admin Trade Name Freq PRN Reason Stop Dose Admin Acetaminophen 650 mg 03/07/25 15:36 03/08/25 15:42 Acetaminophen 325 Mg Tablet PO 04/06/25 15:35 650 mg Q6H PRN Administration Fever >100.4 Acetaminophen 650 mg 03/07/25 15:36 Acetaminophen 325 Mg Tablet PO 04/06/25 15:35 Q6H PRN PAIN SCALE 1-3 (mild Hydrocodone Bitart/Acetaminophen 1 tab 03/07/25 15:36 Hydrocodone/Apap 5/325 Tablet PO 03/12/25 15:35 Q4HR PRN PAIN SCALE 4-6 (Moderate Amiodarone HCl 200 mg 03/08/25 22:00 03/09/25 05:13 Amiodarone Hcl 200 Mg Tablet PO 04/07/25 21:59 200 mg TID SARAH Administration Apixaban 5 mg 03/08/25 21:00 03/09/25 08:08 Apixaban 2.5 Mg Tablet PO 04/07/25 20:59 5 mg BID SARAH Administration Azithromycin 500 mg 03/08/25 09:00 03/09/25 08:09 Azithromycin 250 Mg Tablet PO 03/10/25 15:44 500 mg QDAY SARAH Administration Clopidogrel Bisulfate 75 mg 03/09/25 09:00 03/09/25 08:11 Clopidogrel Bisulfate 75 Mg Tablet PO 04/08/25 08:59 75 mg QDAY SARAH Administration Digoxin 0.25 mg 03/09/25 09:00 03/09/25 08:09 Digoxin 0.125 Mg Tablet PO 04/08/25 08:59 0.25 mg QDAY SARAH Administration Ceftriaxone Sodium/Dextrose 1 gm in 50 mls @ 100 mls/hr 03/08/25 09:00 03/09/25 08:07 Rocephin/D5w 1gm Iv Premix IV 03/15/25 08:59 100 mls/hr QDAY SARAH Administration Metoprolol Tartrate 100 mg 03/09/25 21:00 Metoprolol Tartrate 25 Mg Tablet PO 04/08/25 20:59 BID SARAH Ondansetron HCl 4 mg 03/07/25 15:36 Ondansetron Inj 2 Mg/Ml Inj 2 Ml IVP 04/06/25 15:35 Q6H PRN NAUSEA OR VOMITING Protocol Pantoprazole Sodium 40 mg 03/07/25 15:45 03/09/25 08:09 Pantoprazole 40 Mg Tablet PO 04/06/25 15:44 40 mg QDAY SARAH Administration Plan 79M with sepsis from pneumonia, AFib/flutter with RVR, transient PHYLLIS (resolved), and persistent mild hyponatremia. Sodium remains low (125) likely from multifactorial causes: dilutional hyponatremia from free-water retention and prior volume expansion rather than SIADH (supported by uric acid 4.5). Renal function stable. # Hyponatremia Persistent mild hyponatremia despite initiation of fluid restriction. Etiology likely multifactorial?component of hypervolemic state (CHF picture per echo) with ongoing free water retention, less likely SIADH. Plan: * Continue fluid restriction 1.2 L/day. * Avoid hypotonic fluids. * Trend Na (goal 128?130). * Review urine osmolality when available. * Monitor for mental status changes. # Hypokalemia Mild (K 3.3 mmol/L) and being repleted appropriately. Plan: * Continue KCl repletion to keep > 4.0 mmol/L. * Maintain Mg > 2.0 mg/dL. * Recheck BMP in AM. # PHYLLIS (resolved) Renal function improved and remains stable (Cr 1.0 mg/dL). Plan: * Continue daily BMP. * Avoid nephrotoxins and IV contrast. * Maintain MAP > 65 mmHg. # Hypophosphatemia Mild, likely secondary to poor intake and prior diuresis. Plan: * Replete phosphorus to > 2.5 mg/dL. * Encourage nutritional intake. # Hypocalcemia Corrected Ca 8.4 mg/dL, asymptomatic. Plan: * Continue to monitor Ca/Phos trend. * Prioritize phosphorus correction first. # Cardiac Comorbidities # Atrial fibrillation # CAD Echo shows preserved LV function with mild MR/TR, trace AR. Still in AF/flutter with RVR. Cardiology increased metoprolol to 100 mg BID; continuing amiodarone, Eliquis, and digoxin. Plan: * Continue cardiac meds per cardiology. * Avoid excessive fluid load due to underlying diastolic dysfunction. * Continue electrolyte optimization (K > 4, Mg > 2) to support rhythm stability. ----- Plan discussed with attending physician Dr. Alana Welsh MD PGY-1 Internal Medicine Attending Provider Attestation/Addendum Patient seen and examined with resident physician Dr. Welsh. Note reviewed, agree with findings and recommendations. Sodium 125. Continue with free water fluid restriction. Shortness of breath better. If sodium continues to be low-Will add salt tablets.
--- NOTE | 2025-03-09 12:50 | ESPR_ITS ---
<Statement entered by Tanvir Santana MD - 03/09/25 15:59> Patient was seen and evaluated at bedside this morning. No acute overnight events. Patient's O2 requirements have significantly improved he has not spiked any further fevers. No spikes in 30 CI others. Patient still has some hyponatremia, but his potassium and his metabolic acidosis have improved. Replete electrolytes as necessary. Per cardiology start patient on amiodarone 200 3 times daily and increase metoprolol to tartrate to 100 mg twice daily. Expect possible discharge in the next 24 to 48 hours if patient's sodium does improve. Otherwise no other complaints at this time. General: A/O x3, no acute distress Eyes: PERRL, EOMI. Anicteric, vision grossly intact. Ears: No ear pain, no ear discharge, Hearing grossly intact. Nose: No nasal discharge. Mouth/Throat: Moist mucous membranes, no redness, no lesions. Neck: Neck supple, non-tender, no cervical lymphadenopathy. Lungs: Clearer today, but some crackles still present, No accessory muscle use. Cardio: Normal S1/S2, irregular rhythm, no murmurs, no JVD Abdomen: Soft, non-tender, no palpable masses, peristalsis present, no guarding or rebound. Extremities: Symmetrical, no significant deformities, no peripheral edema , non-tender, peripheral pulses presents. Skin: No rashes, no lesions, warm to touch. Neuro: No focal neurological deficits. motor and sensory intact Psych: Cooperative, appropriate mood and effect. I have reviewed the note and agree with the medical student's assessment & plan with exceptions as below. I have personally reviewed labs, imaging, home meds/prior records, examined the patient, formulated and discussed management plan with my attending Tanvir Santana PGY2 Disclaimer: Even though this this note was dictated by speech recognition and even though it was carefully revised there may still be minor errors in metal extrusion supervisor due to voice recognition software. Documentation for date of: 03/09/25 Subjective Subjective Interval history: Spoke at length with patient and nurse. Pt spiked fever to 100.5 yesterday ~1600, otherwise no overnight events. Telemetry showed sinus tachy/AFIB up to highest 120s HR. Today pt reports ongoing cough, however denies SOB, chest pain, palpitations, abdominal pain, n/v/d, dysuria, fever/chills. Exam Vital Signs Temp Pulse Resp BP Pulse Ox O2 Del Method O2 Flow Rate 97.1 F 77 28 H 126/78 94 L Nasal Cannula 2 03/09/25 12:00 03/09/25 12:00 03/09/25 12:00 03/09/25 12:00 03/09/25 12:00 03/09/25 12:00 03/09/25 12:00 FiO2 35 03/07/25 18:35 Narrative Exam General: A/O x3, no acute distress Eyes: PERRL, EOMI. Anicteric, vision grossly intact. Ears: No ear pain, no ear discharge, Hearing grossly intact. Nose: No nasal discharge. Mouth/Throat: Moist mucous membranes, no redness, no lesions. Neck: Neck supple, non-tender, no cervical lymphadenopathy. Lungs: Mild crackles on L lower lobe, No accessory muscle use. Cardio: Normal S1/S2, irregular rhythm, no murmurs, no JVD Abdomen: Soft, non-tender, no palpable masses, peristalsis present, no guarding or rebound. Extremities: Symmetrical, no significant deformities, no peripheral edema , non-tender, peripheral pulses presents. Skin: No rashes, no lesions, warm to touch. Neuro: No focal neurological deficits. motor and sensory intact Psych: Cooperative, appropriate mood and effect. Objective Labs 03/10/25 04:44 03/10/25 04:44 Labs: Laboratory Results - last 24 hr 03/08/25 03/08/25 03/09/25 11:45 15:45 05:31 WBC 6.1 RBC 3.96 L Hgb 10.6 L Hct 30.5 L MCV 77 L MCH 26.8 MCHC 34.8 RDW Std Deviation 39.0 Plt Count 231 Neut % (Auto) 87 H Lymph % (Auto) 6 L [place] % (Auto) 7 Eos % (Auto) 0 Baso % (Auto) 0 Neut # (Auto) 5.3 Lymph # (Auto) 0.4 L [place] # (Auto) 0.4 Eos # (Auto) 0.0 Baso # (Auto) 0.0 Immature Gran # (Auto) 0.04 H Absolute Nucleated RBC 0.00 Immature Gran % 1 H Nucleated RBC % 0 PT 10.5 INR 1.0 APTT 36.3 H D Sodium 125 L Potassium 3.3 L Chloride 94 L Carbon Dioxide 20.0 Anion Gap 11 BUN 15 Creatinine 1.0 Estim Creat Clear Calc 61.8 eGFR > 60 BUN/Creatinine Ratio 15 Glucose 88 Calculated Osmolality 251 L Uric Acid 4.5 Calcium 7.9 L Corrected Calcium 8.4 L Phosphorus 2.1 L Magnesium 2.4 Total Bilirubin 0.4 AST 124 H ALT 70 H Alkaline Phosphatase 83 D Total Protein 5.8 Albumin 3.4 Globulin 2.4 Albumin/Globulin Ratio 1.4 Ur Collection Type Clean Catch Urine Color Yellow Urine Clarity Turbid A Urine pH 5.5 Ur Specific [place] 1.018 Urine Protein 1+ A Urine Glucose (UA) Negative Urine Ketones Negative Urine Blood 2+ A Urine Nitrite Negative Urine Bilirubin Negative Urine Urobilinogen (Auto) Negative Ur Leukocyte Esterase Negative Urine RBC 3 Urine WBC 1 Ur Squamous Epith Cells 0 Amorphous Crystals Present A Urine Bacteria None RBC Casts 1 Ur Culture Indicated? Not Indicated Ur Random Sodium 24.4 ABG Interpretation ABG results: 03/08/25 09:12 VBG pH 7.43 VBG pCO2 27 L VBG pO2 42 VBG Base Excess -5 L Quality Measures Quality Measures VTE prophylaxis Advance care planning discussed with:: patient Assessment & Plan Assessment Current Active Medications: Generic Name Dose Route Start Last Admin Trade Name Freq PRN Reason Stop Dose Admin Acetaminophen 650 mg 03/07/25 15:36 03/08/25 15:42 Acetaminophen 325 Mg Tablet PO 04/06/25 15:35 650 mg Q6H PRN Administration Fever >100.4 Acetaminophen 650 mg 03/07/25 15:36 Acetaminophen 325 Mg Tablet PO 04/06/25 15:35 Q6H PRN PAIN SCALE 1-3 (mild Hydrocodone Bitart/Acetaminophen 1 tab 03/07/25 15:36 Hydrocodone/Apap 5/325 Tablet PO 03/12/25 15:35 Q4HR PRN PAIN SCALE 4-6 (Moderate Amiodarone HCl 200 mg 03/08/25 22:00 03/09/25 05:13 Amiodarone Hcl 200 Mg Tablet PO 04/07/25 21:59 200 mg TID SARAH Administration Apixaban 5 mg 03/08/25 21:00 03/09/25 08:08 Apixaban 2.5 Mg Tablet PO 04/07/25 20:59 5 mg BID SARAH Administration Azithromycin 500 mg 03/08/25 09:00 03/09/25 08:09 Azithromycin 250 Mg Tablet PO 03/10/25 15:44 500 mg QDAY SARAH Administration Clopidogrel Bisulfate 75 mg 03/09/25 09:00 03/09/25 08:11 Clopidogrel Bisulfate 75 Mg Tablet PO 04/08/25 08:59 75 mg QDAY SARAH Administration Digoxin 0.25 mg 03/09/25 09:00 03/09/25 08:09 Digoxin 0.125 Mg Tablet PO 04/08/25 08:59 0.25 mg QDAY SARAH Administration Ceftriaxone Sodium/Dextrose 1 gm in 50 mls @ 100 mls/hr 03/08/25 09:00 03/09/25 08:07 Rocephin/D5w 1gm Iv Premix IV 03/15/25 08:59 100 mls/hr QDAY SARAH Administration Metoprolol Tartrate 100 mg 03/09/25 21:00 Metoprolol Tartrate 25 Mg Tablet PO 04/08/25 20:59 BID SARAH Ondansetron HCl 4 mg 03/07/25 15:36 Ondansetron Inj 2 Mg/Ml Inj 2 Ml IVP 04/06/25 15:35 Q6H PRN NAUSEA OR VOMITING Protocol Pantoprazole Sodium 40 mg 03/07/25 15:45 03/09/25 08:09 Pantoprazole 40 Mg Tablet PO 04/06/25 15:44 40 mg QDAY SARAH Administration Plan 79yo M w/ PMH AFIB (on Plavix), CAD s/p PCI in 2022, HTN, HLD who came to ED from PCP w/ complaint of x4 days weakness, dizziness, cough, SOB beginning before admission. CXR showed bibasilar pneumo, EKG showed AFIB w/ ST depressions. Admitted for management of sepsis and AFIB w/ NSTEMI. #Sepsis 2/2 CAP Pt reported productive cough, headache, subjective fever on admit. Additionally reported poor oral intake for 4 days before admit. Lungs CTA b/l on admission however ED CXR suggested bibasilar pneumonia. Pt met SIRS criteria on admit with tachycardia, tachypnea, and further sepsis criteria w/ evidence of end-organ damage with elevated troponin as below and creatinine 1.4/BUN 24. WBCs were normal in ED but Procalcitonin was elevated to 7.21 at that time. He is s/p 30ccs/kg fluid (2500ccs). Repeat CXR showed worsening L lung pneumonia and pt spiked a fever to 101.5 overnight. This morning pt reports resolution of shortness of breath however endorses cough, continues to sat <94% or less on 3LNC. Nurse reported dropped to <92% this morning when O2 titrated to 2LNC. - Blood cx pending, no growth thus far - UA showed turbidity, RBCs, amorphous crystals. Per Nephro Urine Na + Uric Acid were ordered, both WNL. - Cont PO Zithromax 500mg qD, IV Rocephin. - PO Zofran for symptomatic relief. - Trend CBC in AM #AFIB w/ RVR #NSTEMI Type I vs II w/ elevated troponins #?HFpEF Pt reported SOB/exercise intolerance x4 days prior to admit, denies chest pain, palpitations, swelling. ED EKG showed AFIB w/ ST depressions concerning for mixed picture AFIB and NSTEMI. He is s/p PCI in 2022. Troponin in ED elevated to 2.399, downtrended latest Trop 1.653. BNP in ED elevated to 217, repeat downtrended to 181. AFIB was rate controlled at home w/ Met Tartrate 50mgBID, in ED pt was tachy to 170s. Pt was tachy overnight with episodes of AFIB. Pt has no history of CHF, however following 2500cc fluid administration in ED per sepsis protocol he became short of breath, lungs showed crackles on auscultation, pt began gurgling fluids. This was concerning for a component of heart failure, however Echo 03/08 showed LVEF 65-70%, mild-mod mitral regurg, mild tricuspid regurg. At this stage etiology of AFIB is unclear as pt reports good control at home, most likely current episode is stress induced in setting of sepsis w/ concomitant demand ischemia vs true NSTEMI Type I Pt had previously been hospitalized 10/2024 during which time TSH, Lipid Panel, HA1c were all WNL. HEART Score 8 (50-65% risk of MACE) - Pt's lead pourer Dr. Brody consulted, appreciate recommendations as below. - Cont PO Eliquis 5mg BID, PO Plavix 75mg qD - Cont PO Digoxin 0.25mg qD PO Amiodarone 200mg TID - Increased PO Metoprolol Tartrate 50mg BID -> 100mg BID - PO Protonix 40mg GI prophylaxis #Metabolic Acidosis #Hyponatremia #Hypokalemia #Hypochloremia Sodium 122 on admit, Potassium 3.2. Currently sodium is 125 with goal of 128+. Potassium this morning 3.3 and was repleted, overall uptrending. Current chloride 94. 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 However these electrolyte derangements raise concern for metabolic acidosis despite kidney function improving. Given pt O2 requirements have steadily increased and he is currently on 3LNC satting 91%, concerning for a respiratory alkalosis with secondary metabolic acidosis. Etiology of this unclear in setting of sepsis and NSTEMI. - Appreciate Nephro Dr. Warner, recommendations as below. - 1.2 L fluid restriction, avoid hypotonics, trend NA (goal 128-130) - Maintain K+ >4, Mg >2.0, Phos >2.5 - Trend CMP in AM - Replete as necessary #Microcytic Anemia Hgb on admit 11.3, MCV 78. Hgb today 10.6. Hold on iron supplementation at this stage d/t concern of infection. - Monitor CBC in AM #PHYLLIS (resolved) Present on admission most likely etiology as end-organ damage in the setting of sepsis, however creatinine and BUN have been stable since. Most likely resolved with 2.5L fluid administration in ED. - Trend CMP in AM - Avoid nephrotoxins/IV contrast - Maintain MAP >65 Hospital management: Disposition: Observe overnight response to cardioregulatory and anti-infection medications + fluid administrations. Diet: Cardiac Lines: peripheral IVs DVT prophylaxis: SCDs GI prophylaxis: PO Protonix CODE STATUS: full code ----- Plan discussed with attending physician Dr. Savita Johnson, Medical Student [facility] Attending Provider Attestation/Addendum I have discussed and was present for the essential components of the history, physical examination, diagnosis, and treatment plan with the resident. I agree with the patient's care as documented by the resident and amended herein by me. Maged Barney DO. Although this document has been carefully reviewed, there may still be some phonetic and other typographical errors. These errors are purely grammatical due to imperfections in the software program and should not be construed in any way to compromise the substance of the patient's medical care during this visit.
--- NOTE | 2025-03-09 15:04 | PC.SS ---
Rounding Note: Plan is to d/c patient home tomorrow.
--- NOTE | 2025-03-09 19:00 | PC.NURSE ---
Pt trialed on room air. Pulse oxygen saturation decreased to 87% and pt complained of SOB. Oxygen reapplied and titrated to 2L via nasal cannula, oxygen saturation back to 94%.
[2025-03-09] MEDS: METOPROLOL TARTRATE 25 MG TABLET 100 MG PO (21:25)
[2025-03-10] VITALS (10 sets, daily range): BP systolic 112–146; BP diastolic 59–72; PULSE 65–96; RESP 17–33; TEMP 36.1–36.4; O2SAT 92–97; BMI 30.6
[2025-03-10] MEDS: AMIODARONE HCL 200 MG TABLET PO ×2 (05:16→14:09)
[2025-03-10 05:47] LABS: Basophils # (Auto) 0.0 Thou/mm3 (0.0-0.2); Basophils % (Auto) 0 % (0-2.5); Eosinophils # (Auto) 0.0 Thou/mm3 (0.0-0.5); Eosinophils % (Auto) 1 % (0-10); Hematocrit 32.6 % (41.0-53.0); Hemoglobin 11.2 g/dL (13.5-16.0); Immature Granulocytes Auto 0.05 Thou/mm3 (0.00-0.00); Lymphocytes # (Auto) 0.6 Thou/mm3 (1.0-4.8); Lymphocytes % (Auto) 11 % (10-50); Mean Corpuscular HGB Conc 34.4 g/dl (31.0-37.0); Mean Corpuscular Hemoglobin 26.1 pg (25.0-35.0); Mean Corpuscular Volume 76 fL (80-100); Monocytes # (Auto) 0.5 Thou/mm3 (0.0-0.8); Monocytes % (Auto) 10 % (0-12); Neutrophils # (Auto) 4.3 Thou/mm3 (1.8-7.7); Neutrophils % (Auto) 78 % (37-80); Nucleated Red Blood Cell # 0.00 Thou/mm3 (0.00-0.00); Nucleated Red Blood Cell % 0 /100 WBC (0); Platelet Count 282 Thou/mm3 (140-440); RDW Standard Deviation 38.2 fL (35.1-43.9); Red Blood Count 4.29 Miln/mm3 (4.50-5.90); White Blood Count 5.5 Thou/mm3 (3.8-10.6)
[2025-03-10 06:05] LABS: Alanine Aminotransferase 88 U/L (10-49); Albumin, Serum 3.6 gm/dL (3.4-4.8); Albumin/Globulin Ratio 1.6 (1.2-2.2); Alkaline Phosphatase 90 U/L (46-116); Anion Gap 11 (7-16); Aspartate Amino Transferase 141 U/L (0-34); BUN/Creatinine Ratio 16 Ratio (12-20); Bilirubin,Total 0.4 mg/dL (0.3-1.2); Blood Urea Nitrogen 14 mg/dL (9-23); Calcium 8.4 mg/dL (8.3-10.6); Calcium (Corrected) 8.7 mg/dL (8.5-10.1); Carbon Dioxide 20.7 mMol/L (20.0-31.0); Chloride 96 mMol/L (98-107); Creatinine (Component) 0.9 mg/dL (0.6-1.3); Estimated Creatinine Clearance 68.3 mL/min (>60); Globulin 2.3 gm/dL (2.3-3.5); Glucose 85 mg/dL (74-106); Magnesium 2.1 mg/dL (1.6-2.6); Osmolality,Calculated 256 (275-295); Phosphorous 2.4 mg/dL (2.4-5.1); Potassium 3.8 mMol/L (3.4-5.1); Sodium 128 mMol/L (136-145); Total Protein 5.9 gm/dL (5.7-8.2); eGFR > 60 See Note
--- NOTE | 2025-03-10 08:59 | PC.SS ---
Oxygen Pt is discharged in a chronic stable state and has been treated optimally and has other respiratory needs. Oxygen has been ordered due to pneumonia.?
--- NOTE | 2025-03-10 09:08 | ESDS_ITS ---
<Statement entered by Tanvir Santana MD - 03/10/25 18:59> 79M with PMH of AFIB (not on anticoagulation), CAD s/p PCI (on plavix) in 2022, HTN, and HLD was admitted due to sepsis 2/2 CAP with end organ damage and NSTEMI type I vs II. Patient was placed on heparin drip throughout the hospital stay and was transition to Eliquis. For his A-fib he was placed on amiodarone drip and diltiazem drip as well as started on digoxin. He was later on switched from diltiazem to metoprolol. Continues on digoxin, metoprolol, amiodarone. Concerning patient's pneumonia he got 3 days of azithromycin along with Rocephin and was given Augmentin upon discharge. At the time of discharge patient was stable enough to be discharged home. General: A/O x3, no acute distress Eyes: PERRL, EOMI. Anicteric, vision grossly intact. Ears: No ear pain, no ear discharge, Hearing grossly intact. Nose: No nasal discharge. Mouth/Throat: Moist mucous membranes, no redness, no lesions. Neck: Neck supple, non-tender, no cervical lymphadenopathy. Lungs: Clearer today than previously, No accessory muscle use. Cardio: Normal S1/S2, irregular rhythm, no murmurs, no JVD Abdomen: Soft, non-tender, no palpable masses, peristalsis present, no guarding or rebound. Extremities: Symmetrical, no significant deformities, no peripheral edema , non-tender, peripheral pulses presents. Skin: No rashes, no lesions, warm to touch. Neuro: No focal neurological deficits. motor and sensory intact Psych: Cooperative, appropriate mood and effect. I have reviewed the note and agree with the medical student's assessment & plan with exceptions as below. I have personally reviewed labs, imaging, home meds/prior records, examined the patient, formulated and discussed management plan with my attending Tanvir Santana PGY2 Disclaimer: Even though this this note was dictated by speech recognition and even though it was carefully revised there may still be minor errors in copying machine repairer due to voice recognition software. Planned Discharge Date 03/10/25 DS: Providers Provider Date of admission: 03/07/25 15:36 Primary care physician: Aniceto Johnson MD Admitting Provider: Brett Cardenas MD Attending Provider on Admission: Aníbal Barney DO Consults: 03/07/25 19:20 Consult to Cardiology Routine Comment: Consulting Provider: David Brody 03/08/25 11:12 Consult to Nephrology Routine Comment: Consulting Provider: Dolly Warner Attending Provider on DC: Fozia De Leon Discharging Provider: Fozia De Leon DS: Diagnosis Problem List Completed Was Problem List Reviewed/Reconciled?: Yes Hospital Course Hospital Course Hospital course: Mr Reji Skelton is a 79yo M w/ PMH AFIB (not on anticoagulation), CAD s/p PCI (on Plavix) in 2022, HTN, HLD came to ED w/ complaint of weakness, dizziness, cough, SOB beginning 03/03/25. These symptoms were associated w/ foggy vision, L temporal headache, diaphoresis, fevers, exercise intolerance. He was initially hypotensive to 70s SBP before becoming hypertensive in ED, as well as tachycardic to 150s-170s HR. Imaging revealed bibasilar PNA L>R, EKG revealed AFIB w/ ST depressions. Labs revealed hyponatremia (122), hypokalemia (3.2), anemia (11.3), troponins elevated (2.399), BNP elevated (217). His composite bond technician Dr. Brody was consulted and he was admitted to telemetry for management of Sepsis likely in setting of CAP, as well as AFIB w/ possible NSTEMI. Notably, per sepsis protocol the patient was administered 30cc/kg of fluid in ED which resulted in fluid overload, the patient entered acute respiratory distress and began gurgling, lung auscultation revealed worsening diffuse crackles that were only bibasilar on initial presentation. These symptoms resolved with Bumex administration. Regarding Sepsis in setting of CAP:The patient symptomatically improved with IV Rocephin 1g (03/08-03/10) and PO Zithromax 500mg qD (03/08-03/10). Initially he spiked nightly fevers to 102.4 highest, however for two days and nights prior to discharge he was afebrile. During admission the patient continued to report mild diaphoresis which resolved and ongoing mild cough, however is asymptomatic upon discharge. Notably he developed transaminitis during this admission thought to be most likely 2/2 acute PNA and possible NSTEMI, much less likely hepatitis or acute cholecystitis as the patient had no abdominal pain upon physical exam this hospital stay. Regarding AFIB in setting of possible NSTEMI: Troponins downtrended steadily. Telemetry during admission showed overnight sinus tachycardia as well as AFIB. Echocardiography was collected this admission due to concern for component of heart failure, however showed normal LVEF, mild-mod mitral regurg, mild tricuspi d regurg, trace aortic regurg, trace pericardial effusion without tamponade. Dr. Brody was following and optimized inpatient medications as follows- Initial IV heparin which was discontinued, patient received PO Eliquis 5mg BID, PO Plavix 75mg qD, PO Digoxin 0.25mg qD, PO Amiodarone 200mg TID, PO Metoprolol Tartrate 100mg BID. Though patient would occasionally enter AFIB his heart rate became much better controlled on this regimen, at time of discharge was not tachycardic. Regarding hyponatremia/hypokalemia, there was concern for component of metabolic acidosis and Nephrology Dr. Warner was consulted. 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 Electrolytes were repleted as necessary and upon discharge the patient's electrolytes are at goal. Upon discharge the patient is hemodynamically stable, afebrile, asymptomatic, however he is still saturating low with exertion. He will be discharged with home oxygen, salt tabs, the above cardioregulatory medications, and antibiotics as below. Please follow-up with primary care physician within 2 to 3 days upon discharge Please follow-up with composite bond technician within 2 to 3 days upon discharge Please follow up with nephrology within 2 weeks upon discharge Recommend outpatient liver function test with your primary care physician to monitor liver enzymes within 1 week. You have increased your metoprolol tartrate to 100 mg twice daily, and started amiodarone 200 mg 2 times daily, Eliquis 5 mg twice daily, and digoxin 0.25 mg daily. You have also been started on Plavix 75 mg daily You have been started on sodium tablets 1 g daily for the next 2 weeks You have been started on Augmentin for 4 more days Hold losartan and amlodipine until following up with cardiology Maintain your fluid intake to 2 L every day. Come back to the ER if symptoms persist or worsen #Sepsis 2/2 CAP #AFIB w/ RVR #NSTEMI Type I vs II w/ elevated troponins #?HFpEF #Metabolic Acidosis #Hyponatremia #Hypokalemia #Hypochloremia #Microcytic Anemia #PHYLLIS (resolved) ----- Plan discussed with attending physician Dr. Savita Johnson, Medical Student OMSIV Time Spent with Patient Time attestation: Total time spent providing and/or coordinating discharge services: Time spent: Greater than 30 minutes Exam Vital Signs Temp Pulse Resp BP Pulse Ox O2 Del Method O2 Flow Rate 96.9 F 93 23 H 144/67 H 94 L Nasal Cannula 2 03/10/25 08:00 03/10/25 08:00 03/10/25 08:00 03/10/25 08:00 03/10/25 08:00 03/10/25 08:00 03/10/25 08:00 FiO2 35 03/07/25 18:35 Discharge Plan Plan Patient Disposition: HOME (Self Care) Care Plan Goals: Please follow-up with primary care physician within 2 to 3 days upon discharge Please follow-up with composite bond technician within 2 to 3 days upon discharge Please follow up with nephrology within 2 weeks upon discharge Recommend outpatient liver function test with your primary care physician to monitor liver enzymes within 1 week. You have increased your metoprolol tartrate to 100 mg twice daily, and started amiodarone 200 mg 2 times daily, Eliquis 5 mg twice daily, and digoxin 0.25 mg daily. You have also been started on Plavix 75 mg daily You have been started on sodium tablets 1 g daily for the next 2 weeks You have been started on Augmentin for 4 more days Hold losartan and amlodipine until following up with cardiology Maintain your fluid intake to 2 L every day. Come back to the ER if symptoms persist or worsen Prescriptions/Referrals Prescriptions/Med Rec: New sodium chloride 1,000 mg tablet,soluble 1,000 mg PO QDAY Qty: 14 0RF amoxicillin-pot clavulanate 875-125 mg tablet 1 tab PO BID Qty: 8 0RF Eliquis 5 mg tablet 5 mg PO BID Qty: 60 0RF digoxin 250 mcg (0.25 mg) tablet 250 mcg PO QDAY Qty: 30 0RF amiodarone 200 mg tablet 200 mg PO BID Qty: 60 0RF Continued atorvastatin 40 mg Tablet 80 mg PO QDAY clopidogrel [Plavix] 75 mg Tablet 75 mg PO QDAY nitroglycerin 0.4 mg Tablet, Sublingual 1 mg BUCCAL [id number] PRN (Reason: Pain) Changed metoprolol tartrate 50 mg Tablet 100 mg PO BID Qty: 120 0RF Held amlodipine 10 mg Tablet 10 mg PO QDAY Hold Instructions: Resume on 03/17/25. hold until you see your composite bond technician losartan 50 mg tablet 50 mg PO QDAY Hold Instructions: Resume on 03/17/25. hold until you see your composite bond technician Patient Comments: TAKE 1 TABLET BY MOUTH EVERY DAY Discontinued quinapril 40 mg Tablet 40 mg PO QDAY aspirin 81 mg Tablet,Chewable 81 mg PO QDAY Qty: 30 0RF Referrals: David Brody MD [Physician, Cardiology] Aniceto Johnson MD [Primary Care Provider, Internal Medicine] Patient/Caregiver Discharge Instructions Other Discharge Activity Instructions:: Please follow-up with primary care physician within 2 to 3 days upon discharge Please follow-up with composite bond technician within 2 to 3 days upon discharge Please follow up with nephrology within 2 weeks upon discharge Recommend outpatient liver function test with your primary care physician to monitor liver enzymes within 1 week. You have increased your metoprolol tartrate to 100 mg twice daily, and started amiodarone 200 mg 2 times daily, Eliquis 5 mg twice daily, and digoxin 0.25 mg daily. You have also been started on Plavix 75 mg daily You have been started on sodium tablets 1 g daily for the next 2 weeks You have been started on Augmentin for 4 more days Hold losartan and amlodipine until following up with cardiology Maintain your fluid intake to 2 L every day. Come back to the ER if symptoms persist or worsen Education Materials: AFL/Afib, Discharge Instructions for ... Print Language: Kenyan Stand Alone Forms: Courtney Award Info., Patient Portal Info Letter Discharge Order Discharge Orders: Discharge (Routine); Ordered 03/10/25 Ordered By: Tanvir Santana Quality Discharge Quality Measures sepsis Attestestation Attestation I have discussed and was present for the essential components of the discharge history, physical examination, diagnosis, and discharge treatment plan with the resident. I agree with the patient's discharge care as documented by the resident and amended herein by me. Maged Barney DO. The patient understood all discharge instructions, all questions were answered satisfactorily. The patient was instructed to return to the Emergency Department is symptoms worsened or persisted. Patient significantly improved, no respiratory distress noted, lungs were clear at time of discharge. Sodium had also up trended to 128 however will send the patient on 2 weeks of sodium tablets per nephrology recommendations. Patient's metoprolol has also been increased to 100 mg twice daily per cardiology recommendations. Patient was also discharged on Eliquis, statin, Plavix, digoxin, losartan and amiodarone 200 mg twice daily per cardiology recommendations. Patient will also be discharged on a short course of Augmentin for pneumonia, see resident note above for additional details. Patient was stable, afebrile, tolerating p.o. intake and ambulatory at time of discharge home. Although this document has been carefully reviewed, there may still be some phonetic and other typographical errors. These errors are purely grammatical due to imperfections in the software program and should not be construed in any way to compromise the substance of the patient's medical care during this visit. Time Spent on discharge: 35 minutes
--- NOTE | 2025-03-10 09:15 | PC.SS ---
DME referral for oxygen submitted on [facility]. Awaiting responses.
--- NOTE | 2025-03-10 09:16 | PC.SS ---
Update: Plan is to d/c patient home today.
--- NOTE | 2025-03-10 09:42 | ESPR_ITS ---
Documentation for date of: 03/10/25 Subjective Subjective Interval history: Reason for consult: hyponatremia/hypokalemia in setting of sepsis and cardiac dysfunction History of present illness: 79-year-old male with history of atrial fibrillation (not on anticoagulation), CAD s/p PCI (2022, on Plavix), hypertension, and hyperlipidemia who was admitted on 03/07/2025 with weakness, shortness of breath, and dizziness for 4 days. In the ED, he was found to have sepsis secondary to community-acquired pneumonia, lactic acidosis, PHYLLIS (Cr 1.4), troponin elevation (2.39 ng/mL), and atrial fibrillation with RVR. He received 2.5 L of IV fluids for sepsis protocol but later developed pulmonary congestion requiring Bumex 1 mg IV. Electrolytes revealed hyponatremia (Na 122 mmol/L) and hypokalemia (K 3.2 mmol/L) on admission. Sodium has improved to 126 mmol/L after fluid resuscitation, while potassium dropped again to 2.9 mmol/L and was repleted. PTH and thyroid studies normal; glucose normal. The patient remains hemodynamically stable and oriented, denying confusion, nausea, vomiting, or seizures. No history of diuretic overuse or excessive free-water intake. Currently on Bumex PRN and receiving IV antibiotics (ceftriaxone, azithromycin). Urine output preserved. ROS: Negative for confusion, vomiting, diarrhea, or dysuria. Positive for weakness and mild shortness of breath. 03/09/2025: Patient seen at bedside this morning. He is alert, oriented, and in no acute distress. Denies shortness of breath, chest pain, dizziness, or confusion. Augustin draining clear yellow urine. Vital signs show BP 157/85, HR 102. Labs today reveal sodium decreased slightly to 125 mmol/L, though fluid restriction was initiated only late yesterday. Potassium remains mildly low at 3.3 mmol/L, currently being repleted by primary team. Creatinine stable at 1.0 mg/dL with good urine output. Serum osmolality 251 mOsm/kg, uric acid 4.5 mg/dL (not suggestive of SIADH), corrected calcium 8.4 mg/dL, phosphorus 2.1 mg/dL, magnesium 2.4 mg/dL. Urine sodium 24.4 mmol/L; urine osmolality still pending. Patient remains hemodynamically stable and asymptomatic. 03/10/2025: Patient seen and examined this morning. He is awake, alert, and oriented ?3. Breathing continues to improve with minimal shortness of breath on room air. No chest pain, dizziness, or confusion. Appetite and oral intake are improving. Augustin catheter has been removed; patient voiding spontaneously. BP 112/71, HR 96, afebrile. Physical exam shows clear lungs with minimal residual crackles, abdomen soft and non-tender. Labs today show improved sodium to 128 (from 125), potassium 3.8, chloride 96, bicarbonate 20.7, creatinine 0.9 mg/dL, GFR >60, calcium 8.7, phosphorus 2.4, magnesium 2.1. WBC 5.5, Hgb 11.2, platelets 282. Overall trending toward normalization. Primary team notes ongoing improvement in respiratory status and rate control of AFib; patient may be discharged later today if stable. Exam Vital Signs Temp Pulse Resp BP Pulse Ox O2 Del Method O2 Flow Rate 96.9 F 93 23 H 144/67 H 94 L Nasal Cannula 2 03/10/25 08:00 03/10/25 08:00 03/10/25 08:00 03/10/25 08:00 03/10/25 08:00 03/10/25 08:00 03/10/25 08:00 FiO2 35 03/07/25 18:35 Narrative Exam General: Alert, conversant, no acute distress. Lungs: Bibasilar crackles, left > right. Cardiac: Irregularly irregular rhythm, no murmurs, no JVD. Abdomen: Soft, non-tender, normoactive bowel sounds. Extremities: No significant edema. Neuro: No focal deficits. Skin: Warm, dry. : Augustin in place with adequate clear urine output. Objective Labs 03/10/25 04:44 03/10/25 04:44 Labs: Laboratory Results - last 24 hr 03/10/25 04:44 WBC 5.5 RBC 4.29 L Hgb 11.2 L Hct 32.6 L MCV 76 L MCH 26.1 MCHC 34.4 RDW Std Deviation 38.2 Plt Count 282 D Neut % (Auto) 78 Lymph % (Auto) 11 [place] % (Auto) 10 Eos % (Auto) 1 Baso % (Auto) 0 Neut # (Auto) 4.3 Lymph # (Auto) 0.6 L [place] # (Auto) 0.5 Eos # (Auto) 0.0 Baso # (Auto) 0.0 Immature Gran # (Auto) 0.05 H Absolute Nucleated RBC 0.00 Immature Gran % 1 H Nucleated RBC % 0 Sodium 128 L Potassium 3.8 D Chloride 96 L Carbon Dioxide 20.7 Anion Gap 11 BUN 14 Creatinine 0.9 Estim Creat Clear Calc 68.3 eGFR > 60 BUN/Creatinine Ratio 16 Glucose 85 Calculated Osmolality 256 L Calcium 8.4 Corrected Calcium 8.7 Phosphorus 2.4 Magnesium 2.1 Total Bilirubin 0.4 AST 141 H ALT 88 H Alkaline Phosphatase 90 Total Protein 5.9 Albumin 3.6 Globulin 2.3 Albumin/Globulin Ratio 1.6 ABG Interpretation ABG results: 03/08/25 09:12 VBG pH 7.43 VBG pCO2 27 L VBG pO2 42 VBG Base Excess -5 L Quality Measures Quality Measures VTE prophylaxis Advance care planning discussed with:: patient Assessment & Plan Assessment Current Active Medications: Generic Name Dose Route Start Last Admin Trade Name Freq PRN Reason Stop Dose Admin Acetaminophen 650 mg 03/07/25 15:36 03/08/25 15:42 Acetaminophen 325 Mg Tablet PO 04/06/25 15:35 650 mg Q6H PRN Administration Fever >100.4 Acetaminophen 650 mg 03/07/25 15:36 Acetaminophen 325 Mg Tablet PO 04/06/25 15:35 Q6H PRN PAIN SCALE 1-3 (mild Hydrocodone Bitart/Acetaminophen 1 tab 03/07/25 15:36 Hydrocodone/Apap 5/325 Tablet PO 03/12/25 15:35 Q4HR PRN PAIN SCALE 4-6 (Moderate Amiodarone HCl 200 mg 03/08/25 22:00 03/10/25 05:16 Amiodarone Hcl 200 Mg Tablet PO 04/07/25 21:59 200 mg TID SARAH Administration Apixaban 5 mg 03/08/25 21:00 03/09/25 21:25 Apixaban 2.5 Mg Tablet PO 04/07/25 20:59 5 mg BID SARAH Administration Azithromycin 500 mg 03/08/25 09:00 03/09/25 08:09 Azithromycin 250 Mg Tablet PO 03/10/25 15:44 500 mg QDAY SARAH Administration Clopidogrel Bisulfate 75 mg 03/09/25 09:00 03/09/25 08:11 Clopidogrel Bisulfate 75 Mg Tablet PO 04/08/25 08:59 75 mg QDAY SARAH Administration Digoxin 0.25 mg 03/09/25 09:00 03/09/25 08:09 Digoxin 0.125 Mg Tablet PO 04/08/25 08:59 0.25 mg QDAY SARAH Administration Ceftriaxone Sodium/Dextrose 1 gm in 50 mls @ 100 mls/hr 03/08/25 09:00 03/09/25 08:37 Rocephin/D5w 1gm Iv Premix IV 03/15/25 08:59 Infused QDAY SARAH Infusion Metoprolol Tartrate 100 mg 03/09/25 21:00 03/09/25 21:25 Metoprolol Tartrate 25 Mg Tablet PO 04/08/25 20:59 100 mg BID SARAH Administration Ondansetron HCl 4 mg 03/07/25 15:36 Ondansetron Inj 2 Mg/Ml Inj 2 Ml IVP 04/06/25 15:35 Q6H PRN NAUSEA OR VOMITING Protocol Pantoprazole Sodium 40 mg 03/07/25 15:45 03/09/25 08:09 Pantoprazole 40 Mg Tablet PO 04/06/25 15:44 40 mg QDAY SARAH Administration Plan 79M with sepsis due to pneumonia, AFib with RVR, transient PHYLLIS (resolved), and prior hyponatremia that is now improving with fluid restriction. Sodium up to 128 today; electrolytes stable; renal function normal. Patient clinically stable and appropriate for discharge from nephrology standpoint. # Hyponatremia Improving (Na 128 up from 125). Etiology multifactorial: prior fluid overload and free-water retention. No evidence of SIADH (uric acid 4.5). Plan: * Continue 1.2 L/day fluid restriction. * Start sodium chloride tablets 1 g TID for 2 weeks upon discharge. * Monitor sodium with repeat BMP prior to clinic visit * Outpatient follow-up with Dr. Warner (Nephrology) in 2 weeks. # Hypokalemia Mild (K 3.3 mmol/L) and being repleted appropriately. Plan: * Continue KCl repletion to keep > 4.0 mmol/L. * Maintain Mg > 2.0 mg/dL. * Recheck BMP in AM. # PHYLLIS (resolved) Renal function improved and remains stable (Cr 0.9). Plan: * Continue daily BMP. * Avoid nephrotoxins and IV contrast. * Maintain MAP > 65 mmHg. # Hypophosphatemia Mild, likely secondary to poor intake and prior diuresis. Plan: * Replete phosphorus to > 2.5 mg/dL. * Encourage nutritional intake. # Hypocalcemia Corrected Ca 8.7 mg/dL, asymptomatic. Plan: * Continue to monitor Ca/Phos trend. * Prioritize phosphorus correction first. # Cardiac Comorbidities # Atrial fibrillation # CAD Echo shows preserved LV function with mild MR/TR, trace AR. Still in AF/flutter with RVR. Cardiology increased metoprolol to 100 mg BID; continuing amiodarone, Eliquis, and digoxin. Plan: * Continue cardiac meds per cardiology. * Avoid excessive fluid load due to underlying diastolic dysfunction. * Continue electrolyte optimization (K > 4, Mg > 2) to support rhythm stability. ----- Plan discussed with attending physician Dr. Alana Welsh MD PGY-1 Internal Medicine Attending Provider Attestation/Addendum Patient seen and examined with resident physician Dr. Welsh. Note reviewed, agree with findings and recommendations. Patient more alert and awake. Breathing seems to be much better. Sodium 128. Renal parks stable for discharge. Follow-up with me in 1 to 2 weeks. His primary care provider is Dr. Johnson
[2025-03-10] MEDS: cefTRIAXone/D5w 1gm IV premix 1 GM/50 ML BAG IV (09:48)
[2025-03-10] MEDS: METOPROLOL TARTRATE 25 MG TABLET 100 MG PO (09:53)
[2025-03-10] MEDS: PANTOPRAZOLE 40 MG TABLET PO (09:54)
[2025-03-10] MEDS: DIGOXIN 0.125 MG TABLET 0.25 MG PO (09:54)
[2025-03-10] MEDS: AZITHROMYCIN 250 MG TABLET 500 MG PO (09:54)
[2025-03-10] MEDS: APIXABAN 2.5 MG TABLET 5 MG PO (09:54)
[2025-03-10] MEDS: CLOPIDOGREL BISULFATE 75 MG TABLET PO (09:54)
--- NOTE | 2025-03-10 11:19 | PC.CC ---
S/W [facility] RE Eliquis. Patient has Medicare Part D, however, co-pay is $478.34. Provided Eliquis Free Trial to pharmacy. Attempted to discuss w/ patient, however, patient walking with staff. Will follow-up.
--- NOTE | 2025-03-10 12:25 | PC.SS ---
FUSING MACHINE FEEDER confirmed oxygen has been delivered to patient at bedside. FUSING MACHINE FEEDER updated bedside nurse.
--- NOTE | 2025-03-10 12:33 | ESPR_ITS ---
RE: NATALIE STILES : 1945 DATE OF SERVICE: 03/10/2025 SUBJECTIVE: Mr. Stiles is resting comfortably in bed. Today, the patient is breathing fairly well, though he is still requiring oxygen therapy. Denies any complaints of chest pain, denies any complaints of skipped beats or palpitations. OBJECTIVE: Vital Signs: The patient's blood pressure today is 147/67, pulse rate is 93 and irregularly irregular. Respiratory rate is 20 per minute. The patient's temperature is 96.9. Heart: The heart examination shows irregularly irregular heart rhythm. Lungs: The lung shows few basal rhonchi. Extremities: No pedal edema is noted. The patient's heart rhythm is staying in atrial fibrillation with controlled ventricular response and rate is ranging in 70s and 80s. LABORATORY DATA: The lab today shows WBC count of 5500, hemoglobin 11.2 with a hematocrit of 32.6. The patient's BUN today is 14, creatinine 0.9, potassium level is 3.8, sodium 128, chloride 96. The patient's chest x-ray done. PLAN: The patient is for discharge home today on present medications of digoxin 0.25 mg daily, clopidogrel 75 mg daily, Eliquis 5 mg b.i.d., metoprolol tartrate 100 mg b.i.d., amiodarone dosage decreased from 200 mg t.i.d. to 200 mg b.i.d. The antibiotic therapy will be continued as prescribed by the hospitalist. The patient will be seen for cardiac followup in my office as outpatient. DT: 12:21:09 TT: 12:31:00 Ref: [id number] - TID: [id number]
[2025-03-14 06:33] LABS: Osmolality, Urine* 475 mOsm/kg (50-1200)
--- NOTE | 2025-03-15 12:39 | PC.CC ---
Received a VM from Laverne Skelton RE patient missing d/c med digoxin. Shows received via [facility]. S/W [facility] who stated they do not have it. Called in verbal Rx to [facility].
== END 2025-03-10 14:53 | disposition home or self-care (01) | DRG 871 ==
LOC: SERX 15:20 → SERHOLD 15:53 → S2NX 17:27
PROVIDERS: Student in an Organized Health Care Education/Training Program; Admitting Provider Student in an Organized Health Care Education/Training Program; Emergency Provider Emergency Medicine; PCP Internal Medicine; Visit Provider Student in an Organized Health Care Education/Training Program
DX: A41.9 Sepsis, unspecified organism (principal); I21.A1 Myocardial infarction type 2; J18.9 Pneumonia, unspecified organism; I48.20 Chronic atrial fibrillation, unspecified; E87.1 Hypo-osmolality and hyponatremia; N17.9 Acute kidney failure, unspecified; I48.92 Unspecified atrial flutter; I50.30 Unspecified diastolic (congestive) heart failure; E87.4 Mixed disorder of acid-base balance; E22.2 Syndrome of inappropriate secretion of antidiuretic hormone; Z98.61 Coronary angioplasty status; E78.5 Hyperlipidemia, unspecified; I25.10 Atherosclerotic heart disease of native coronary artery without angina pectoris; I11.0 Hypertensive heart disease with heart failure; E87.6 Hypokalemia; D50.9 Iron deficiency anemia, unspecified; M19.90 Unspecified osteoarthritis, unspecified site; E87.8 Other disorders of electrolyte and fluid balance, not elsewhere classified; E83.51 Hypocalcemia; E86.1 Hypovolemia; E83.39 Other disorders of phosphorus metabolism; Z87.891 Personal history of nicotine dependence; Z79.01 Long term (current) use of anticoagulants; Z79.02 Long term (current) use of antithrombotics/antiplatelets; Z79.82 Long term (current) use of aspirin; Z79.899 Other long term (current) drug therapy; Z96.641 Presence of right artificial hip joint
CPT/HCPCS: 36415; 70450; 71045; 80053; 80069; 81001; 82803; 83605; 83690; 83735; 83880; 83935; 84100; 84145; 84295; 84300; 84484; 84550; 85025; 85610; 85730; 87040; 87502; 87811; 93005; 93306; 94660; 96361; 96365; 96366; 96375; 96376; 99285; A4314; J0283; J0456; J0696; J1160; J1644; J3475; J3480; J3490; J7030; J7050; J7999; A9270

== ENCOUNTER → 2025-04-13 | Outpatient (CLI) | payer MEDICARE, OTHER, SELFPAY ==
[2025-04-13 08:39] LABS: Basophils # (Auto) 0.1 Thou/mm3 (0.0-0.2); Basophils % (Auto) 1 % (0-2.5); Eosinophils # (Auto) 0.3 Thou/mm3 (0.0-0.5); Eosinophils % (Auto) 5 % (0-10); Hematocrit 34.0 % (41.0-53.0); Hemoglobin 11.1 g/dL (13.5-16.0); Immature Granulocytes Auto 0.03 Thou/mm3 (0.00-0.00); Lymphocytes # (Auto) 1.9 Thou/mm3 (1.0-4.8); Lymphocytes % (Auto) 29 % (10-50); Mean Corpuscular HGB Conc 32.6 g/dl (31.0-37.0); Mean Corpuscular Hemoglobin 27.5 pg (25.0-35.0); Mean Corpuscular Volume 84 fL (80-100); Monocytes # (Auto) 0.6 Thou/mm3 (0.0-0.8); Monocytes % (Auto) 9 % (0-12); Neutrophils # (Auto) 3.7 Thou/mm3 (1.8-7.7); Neutrophils % (Auto) 56 % (37-80); Nucleated Red Blood Cell # 0.00 Thou/mm3 (0.00-0.00); Nucleated Red Blood Cell % 0 /100 WBC (0); Platelet Count 276 Thou/mm3 (140-440); RDW Standard Deviation 51.0 fL (35.1-43.9); Red Blood Count 4.04 Miln/mm3 (4.50-5.90); White Blood Count 6.6 Thou/mm3 (3.8-10.6)
[2025-04-13 09:20] LABS: Alanine Aminotransferase 19 U/L (10-49); Albumin, Serum 4.1 gm/dL (3.4-4.8); Alkaline Phosphatase 99 U/L (46-116); Anion Gap 10 (7-16); Aspartate Amino Transferase 22 U/L (0-34); BUN/Creatinine Ratio 14 Ratio (12-20); Bilirubin,Direct 0.2 mg/dL (0.0-0.3); Bilirubin,Total 0.5 mg/dL (0.3-1.2); Blood Urea Nitrogen 14 mg/dL (9-23); Calcium 8.8 mg/dL (8.3-10.6); Carbon Dioxide 26.2 mMol/L (20.0-31.0); Cardiac Risk Estimate 3.6 RATIO (4.0-6.7); Chloride 108 mMol/L (98-107); Cholesterol 131 mg/dL (132-200); Creatinine (Component) 1.0 mg/dL (0.6-1.3); Digoxin 1.0 ng/mL (0.8-2.0); Free T4 (Free Thyroxine) 1.28 ng/dL (0.89-1.76); Glucose 93 mg/dL (74-106); HDL Cholesterol 36 mg/dL (40-60); LDL Cholesterol,Calculated 78 mg/dL (0-130); Osmolality,Calculated 287 (275-295); Potassium 4.5 mMol/L (3.4-5.1); Sodium 144 mMol/L (136-145); Thyroid Stimulating Hormone 5.74 uIU/mL (0.55-4.78); Total Protein 5.9 gm/dL (5.7-8.2); Triglycerides 84 mg/dL (30-150); eGFR > 60 See Note
== END | disposition home or self-care (01) ==
LOC: COPL 07:59
PROVIDERS: PCP Internal Medicine; Referring Provider Internal Medicine Cardiovascular Disease; Visit Provider Internal Medicine Cardiovascular Disease
DX: I10 Essential (primary) hypertension (principal); E78.5 Hyperlipidemia, unspecified; I25.118 Atherosclerotic heart disease of native coronary artery with other forms of angina pectoris; I49.9 Cardiac arrhythmia, unspecified
CPT/HCPCS: 36415; 80048; 80061; 80076; 80162; 84439; 84443; 85025